=== PATIENT | male | born 1935 | race Caucasian/White ===

== ENCOUNTER 2019-05-22 10:25 | Inpatient (IN) | payer MEDICARE ==
[2019-05-22] MEDS ORDERED: Lidocaine 1% (PF) 30 ML VIAL ONE (11:05)
[2019-05-22] MEDS ORDERED: Diazepam 5 MG TAB ONE (11:07)
[2019-05-22 11:18] LABS: #Eosinphils 0.2 thou/uL (0.0-0.7); #Lymphocytes 2.4 thou/uL (1.20-3.40); #Monocytes 0.7 thou/uL (0.11-0.59); #Neutrophils 4.7 thou/uL (1.40-6.50); %Basophils 0.5 % (0.0-1.0); %Eosinophils 2.9 % (0.0-10.0); %Lymphocytes 29.3 % (21.0-51.0); %Monocytes 8.8 % (0.0-10.0); %Neutrophils 58.5 % (42.0-75.0); Hemoglobin 14.1 g/dL (14.0-18.0); Mean Corpuscular HGB CONC 33.4 g/dL (32.0-36.0); Mean Corpuscular Hemoglobin 33.6 pg (27.0-31.0); Mean Platelet Volume 7.7 fL (7.4-10.4); Platelet Count 221 thou/uL (130-400); RBC Distribution Width 13.3 % (11.5-14.5); Red Blood Cell (RBC) Count 4.18 mill/uL (4.70-6.10); White Blood Cell (WBC) Count 8.1 thou/uL (4.8-10.8)
[2019-05-22 11:32] LABS: Anion Gap 12 mmol/L (10-20); BUN (Urea Nitrogen) 23 mg/dL (8.4-25.7); Calc. Creatinine Clearance 0 mL/min (70-130); Calcium 9.2 mg/dL (7.8-10.44); Carbon Dioxide 23 mmol/L (23-31); Chloride 108 mmol/L (98-107); Estimated GFR-MDRD 52; Glucose 87 mg/dL (83-110); Potassium 4.2 mmol/L (3.5-5.1); Sodium 139 mmol/L (136-145)
[2019-05-22] MEDS ORDERED: Fentanyl 100 MCG/2 ML VIAL ONE (12:11)
[2019-05-22] MEDS ORDERED: Midazolam HCl 2 mg/2 ml Vial ONE (12:12)
[2019-05-22] MEDS ORDERED: Furosemide 40 MG/4 ML VIAL ONE (13:02)
[2019-05-22] MEDS ORDERED: Nitroglycerin 2% Ointment 1 INCH/1 GM Packet ONE (13:02)
[2019-05-22] MEDS ORDERED: Nitroglycerin 4.9 GM Bottle ONE (13:05)
[2019-05-22] MEDS ORDERED: cloNIDine 0.1 MG TAB ONE (13:06)
[2019-05-22] MEDS ORDERED: Iopamidol 370 76% 100 ML VIAL ONE (13:13)
[2019-05-22] MEDS ORDERED: Nitroglycerin 0.4 MG TAB (25 Tab Bottle) SL PRN (15:18)
[2019-05-22] MEDS ORDERED: cloNIDine 0.1 MG TAB PO PRN (15:21)
[2019-05-22] MEDS ORDERED: Amlodipine 5 MG TAB PO SCH (16:30)
--- NOTE | 2019-05-22 17:08 | HP ---
REASON FOR ADMISSION: Unstable angina and severe three-vessel coronary artery disease. HISTORY OF PRESENT ILLNESS: Mr. Mujica is a very pleasant 84-year-old gentleman. The patient has a history of prostate cancer with previous radiation therapy, subsequent recurrence, but is now well controlled with testosterone blocking agent as well as intermittent doses of antiestrogens. The PSAs improved dramatically. The patient recently has been having increasing amounts of chest pain or pressure with low-level exertion at rest. He initially was extremely hypertensive. The blood pressure was over 200 systolic. He did have a slight increased troponin, but it was thought to be demand ischemia, but even after controlling the blood pressure, he continued to have resting angina. He was seen in the office yesterday and was advised to undergo cardiac catheterization, which he agreed to. The patient was found to have severe three-vessel disease with ejection fraction 40% on catheterization today. MEDICATIONS: The patient takes; 1. Zytiga. 2. Lupron intermittently. 3. Lisinopril 5 mg a day. 4. Lasix 20 mg a day, just started. 5. Aspirin 81 mg a day. 6. Paroxetine. ALLERGIES: NONE KNOWN. SOCIAL HISTORY: Very supportive family. Does not use tobacco or use alcohol excessively. REVIEW OF SYSTEMS: CONSTITUTIONAL: Still remains active. VISION: No changes. HEARING: No changes. PULMONARY: No cough or wheezing. GASTROINTESTINAL: No nausea, vomiting, or diarrhea. SKIN: No rashes. NEUROLOGIC: No unilateral weakness or numbness. PSYCHIATRIC: No unusual depression or anxiety. HEMATOLOGIC: No unusual bruising. GENITOURINARY: No burning with urination. PAST MEDICAL HISTORY: As mentioned, prostate cancer controlled. PHYSICAL EXAMINATION: GENERAL: This is a pleasant elderly gentleman, in no distress. Awake and alert. He has undergone cardiac catheterization. VITAL SIGNS: Blood pressure has been variable most recently 150 systolic. LUNGS: Clear. CARDIAC: Normal S1 and S2. 2/6 mid systolic murmur in the left upper sternal border. No diastolic murmur. No S3. ABDOMEN: Soft and nontender. EXTREMITIES: No cyanosis. There is very mild edema. Pedal pulses are palpable. SKIN: Warm and dry. Cardiac catheterization, severe three-vessel disease with mild aortic stenosis. ASSESSMENT: 1. Severe three-vessel disease. 2. Renal insufficiency, stable. 3. Prostate cancer, controlled. 4. Hypertension. PLAN: 1. He has been started on lisinopril. 2. We will add nitrates. 3. Consulted Thoracic Surgery. 4. Start statins. His cholesterol is extremely high. Most recent LDL that I can see in the computer was 205 back in last May. In view of the unstable pattern with actually recent troponin levels being slightly elevated at 0.9 and then 0.555, we will keep him in the hospital till Thoracic consultations obtained. Job ID: [id number]
[2019-05-22] MEDS: Acetaminophen 500 MG TAB PO PRN (18:40)
[2019-05-22] MEDS: Lisinopril 5 MG TAB PO SCH (20:22)
[2019-05-22] MEDS: Atorvastatin Calcium 40 MG TAB PO SCH (20:22)
[2019-05-22] MEDS: Nitroglycerin 2% Ointment 1 INCH/1 GM Packet TOP SCH (20:22)
[2019-05-23] MEDS: Acetaminophen 500 MG TAB PO PRN ×4 (01:42→21:28)
[2019-05-23] MEDS: predniSONE 5 MG TAB PO SCH (08:56)
[2019-05-23] MEDS: Amlodipine 5 MG TAB PO SCH (08:56)
[2019-05-23] MEDS: Lisinopril 5 MG TAB PO SCH ×2 (08:57→21:26)
[2019-05-23] MEDS: Enoxaparin Sodium 30 MG/0.3 ML SYRINGE SC SCH ×2 (08:57→21:28)
[2019-05-23] MEDS: Nitroglycerin 2% Ointment 1 INCH/1 GM Packet TOP SCH ×2 (08:57→21:28)
[2019-05-23] MEDS: Aspirin 81 mg Enteric Coated Tablet PO SCH (08:57)
[2019-05-23] MEDS: Furosemide 20 MG TAB PO SCH (08:57)
[2019-05-23] MEDS ORDERED: [UNRECOGNIZED DRUG - OTHER] FS ONE (13:10)
--- NOTE | 2019-05-23 15:42 | ULT ---
EXAM: Carotid Doppler PROVIDED CLINICAL HISTORY: Carotid bruit COMPARISON: None FINDINGS: Grayscale and color Doppler sonography with spectral analysis was performed of the extracranial carot id system bilaterally. There is no evidence for a hemodynamically significant internal carotid artery stenosis by peak systolic velocity or ratio criteria. Antegrade flow is seen in the vertebral arteries. Calcified atherosclerotic plaque is seen involving each carotid bulb. IMPRESSION: No sonographic evidence for a hemodynamically significant internal carotid artery stenosis.
--- NOTE | 2019-05-23 16:02 | RAD ---
EXAM: Two views chest PROVIDED CLINICAL HISTORY: Chest pain and shortness of breath COMPARISON: 06/05/2012 FINDINGS: Cardiac and mediastinal silhouette appears within normal limits. Lungs appear free of significant opa city. No pleural fluid or pneumothorax apparent. There is a new sclerotic focus seen within the distal right clavicle suspicious for metastatic disease. IMPRESSION: 1. No evidence for an acute cardiopulmonary process. 2. Sclerotic right clavicular focus suspicious for metastatic disease.
--- NOTE | 2019-05-23 16:21 | CON ---
DATE OF CONSULTATION: 05/23/2019 PRIMARY CARE PHYSICIAN: Tim Martinez MD CHIEF COMPLAINT: Chest pressure and squeezing. 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 For few weeks now, he has been noticing some chest pressure and tightness that has gradually been getting worse. It is now associated with significant dyspnea on exertion. He occasionally has some discomfort at rest. He has had some swelling of his feet and ankles and some orthopnea over the last 2 or 3 weeks and screening troponins that were done as an outpatient to evaluate some progression of the symptoms when they were fairly active, were mildly elevated along with an elevated BNP. Cardiac catheterization yesterday showed severe 3-vessel coronary artery disease with mildly decreased LV function. PAST MEDICAL HISTORY: Significant for metastatic prostate cancer that is currently under good control following local radiation therapy initially and then hormonal manipulation. He has hyperlipidemia. MEDICATIONS: His home medications are; 1. Lisinopril 5 mg a day. 2. Baby aspirin a day. 3. Lasix 20 mg a day that was recently started in response to his edema. 4. Intermittent Lupron. 5. Prolia. 6. Abiraterone. 7. Prednisone. His current medications are; 1. Norvasc 2.5 mg a day. 2. Lisinopril 5 mg b.i.d. 3. Lasix 20 mg a day. 4. Nitroglycerin paste 1 inch b.i.d. 5. Baby aspirin a day. 6. Lipitor 80 mg at bedtime. 7. Protonix 40 mg a day. 8. Prednisone 5 mg a day. 9. Lovenox 30 mg subcu q.12 hours. ALLERGIES: HE DENIES ANY MEDICAL ALLERGIES. SOCIAL HISTORY: He does not smoke. REVIEW OF SYSTEMS: Positive for his orthopnea, dyspnea on exertion and pedal edema. Prior to this current progression of symptoms, he had no problems with shortness of breath. He reports some arthritic symptoms in his knees, but otherwise no trouble walking while he does not remember them. His and a family friend remember at least two recent episodes, where he seemed dazed and confused and had trouble speaking, which lasted for few hours and then he returned to baseline. PHYSICAL EXAMINATION: VITAL SIGNS: He is 5 feet 10.5 inches and weighs 269 pounds. Heart rate 62, blood pressure 157/76, and temperature is 98.2. HEENT: He has no xanthelasma. NECK: No JVD. He has a left carotid bruit. CHEST: Clear to auscultation. HEART: He has a regular rate and rhythm with soft systolic murmur heard over the left upper sternal border. ABDOMEN: Protuberant, soft, and nontender. EXTREMITIES: He has palpable radial and posterior tibial pulses bilaterally. He has trace pretibial edema at the ankles. I am not able to readily appreciate his saphenous veins. He has no clubbing or cyanosis. NEUROLOGIC: Grossly nonfocal. LABORATORY DATA: His white count is 8.1, hemoglobin 14.8, hematocrit 42.1, and platelets 221,000. Electrolytes were normal. Glucose 87, BUN 23, creatinine 1.31 with an estimated GFR of 52. In going back through his historical record, his BUN's and creatinines have tended to trend on the high side and GFR is on the low side, but they have actually been improving of late. In November of 2016, his BUN was 17 and creatinine 2.23 with an estimated GFR of 29. About seven months later in May of 2018; BUN is 26, creatinine 1.74, and GFR of 38. In late March of this year, his BUN was 13, creatinine 1.29 with an estimated GFR 53, and on the of this month, his BUN was 21, creatinine 1.44 with an estimated GFR 47. His LFTs are normal including his alkaline phosphatase. Calcium was 9.7 and albumin 4.2. His BNP was 214.4, and troponins were 0.910 and 0.554. He has not had a chest x-ray in this hospitalization. His cardiac catheterization shows a right-dominant system with occlusion of the right coronary at the crux with [id number] filling of the PDA and small posterolateral branch. His calcification visible in the left main and proximal LAD and circumflex. He has some minimal stenosis in the proximal LAD, but then 80% or 90% lesion a little bit beyond the first septal flexographic printing machinist at the second septal flexographic printing machinist. He has about an 80% lesion in the circumflex with a large vessel going out to the apex. LVEF is around 40% with basilar akinesis but hypokinesis of most of the inferior wall. LV pressures were 196/9 with an EDP of 20 and an aortic pressure on pullback of 186/89 with a mean pressure of 128. There is some mild calcification visible in the cusps of the aortic valve at the very base of the aortic root. IMPRESSION AND RECOMMENDATIONS: Three-vessel coronary artery disease with mildly decreased LV function with pattern of worsening angina in a patient with documented hypertension and some renal insufficiency. He also has a suspicious neurologic symptom and a corresponding left carotid bruit. I am going to tentatively plan on his coronary artery bypass grafting on Saturday, but in the meantime, check a carotid ultrasound. Job ID: [id number]
[2019-05-23] MEDS: Docusate 100 MG CAP PO SCH (21:26)
[2019-05-23] MEDS: Atorvastatin Calcium 40 MG TAB PO SCH (21:28)
[2019-05-24 04:26] LABS: Anion Gap 10 mmol/L (10-20); BUN (Urea Nitrogen) 17 mg/dL (8.4-25.7); Calc. Creatinine Clearance 78 mL/min (70-130); Calcium 9.4 mg/dL (7.8-10.44); Carbon Dioxide 28 mmol/L (23-31); Chloride 106 mmol/L (98-107); Estimated GFR-MDRD 55; Glucose 102 mg/dL (83-110); Potassium 3.7 mmol/L (3.5-5.1); Sodium 140 mmol/L (136-145)
[2019-05-24] MEDS: Amlodipine 5 MG TAB PO SCH (09:37)
[2019-05-24] MEDS: predniSONE 5 MG TAB PO SCH (09:37)
[2019-05-24] MEDS: Docusate 100 MG CAP PO SCH ×2 (09:37→21:48)
[2019-05-24] MEDS: Lisinopril 5 MG TAB PO SCH ×2 (09:38→21:49)
[2019-05-24] MEDS: Aspirin 81 mg Enteric Coated Tablet PO SCH (09:38)
[2019-05-24] MEDS: Enoxaparin Sodium 30 MG/0.3 ML SYRINGE SC SCH ×2 (09:38→21:49)
[2019-05-24] MEDS: Furosemide 20 MG TAB PO SCH (09:38)
[2019-05-24] MEDS: Nitroglycerin 2% Ointment 1 INCH/1 GM Packet TOP SCH ×2 (09:39→21:49)
[2019-05-24] MEDS: Atorvastatin Calcium 40 MG TAB PO SCH (21:48)
[2019-05-25] MEDS: Lisinopril 5 MG TAB PO SCH (05:43)
[2019-05-25] MEDS ORDERED: Midazolam HCl 5 mg/5 ml Vial ONE (06:30)
[2019-05-25] MEDS ORDERED: Midazolam HCl 2 mg/2 ml Vial ONE (06:30)
[2019-05-25] MEDS ORDERED: Vecuronium 10 MG VIAL ONE ×2 (06:30→11:06)
[2019-05-25] MEDS ORDERED: Fentanyl 100 MCG/2 ML VIAL ONE (06:30)
[2019-05-25] MEDS ORDERED: Dexmedetomidine 200 MCG/2 ML VIAL ONE (06:30)
[2019-05-25] MEDS ORDERED: Albumin 5% 500 ML ONE (06:36)
[2019-05-25] MEDS ORDERED: Heparin 10,000 UNITS/1 ML VIAL 30,000 UNITS in Sodium Chloride 0.9% 1,000 ML FS SCH (06:45)
[2019-05-25] MEDS ORDERED: Thrombin 5000 UNITS/5 ML VIAL ONE (11:06)
[2019-05-25] MEDS ORDERED: Heparin 5,000 UNITS/ML VIAL ONE (11:06)
[2019-05-25] MEDS ORDERED: Hydrocortisone Sod Succ/PF 100 mg/2 ml Vial ONE (11:06)
[2019-05-25] MEDS ORDERED: Sodium Bicarb 50 MEQ/50 ML VIAL ONE (11:06)
[2019-05-25] MEDS ORDERED: Glycopyrrolate 0.2 MG/ML 5 ML SYRINGE ONE (11:06)
[2019-05-25] MEDS ORDERED: Magnesium 5 GM/10 ML VIAL ONE (11:06)
[2019-05-25] MEDS ORDERED: Cardioplegic Soln 1,000 ML BAG ONE (11:06)
[2019-05-25] MEDS ORDERED: Dexamethasone 20 MG/5 ML VIAL ONE (11:06)
[2019-05-25] MEDS ORDERED: Lidocaine 2% PF 100 mg/5 ml Syringe ONE (11:06)
[2019-05-25] MEDS ORDERED: Ketorolac Tromethamine 30 MG/ML VIAL ONE (11:06)
[2019-05-25] MEDS ORDERED: Calcium Chloride 1 GM/10 ML Abboject SYRINGE ONE (11:06)
[2019-05-25] MEDS ORDERED: Potassium Chloride 60 MEQ/30 ML VIAL ONE (11:06)
[2019-05-25] MEDS ORDERED: Aminocaproic Acid 5 GM/20 ML VIAL ONE (11:06)
[2019-05-25] MEDS ORDERED: Nitroglycerin 50 MG/250 ML BOT ONE (11:06)
[2019-05-25] MEDS ORDERED: PHENYLEPHRINE-NS 100 MCG/ML 10 ML SYRINGE ONE (11:06)
[2019-05-25] MEDS ORDERED: Protamine Sulfate 250 MG/25 ML VIAL ONE (11:06)
[2019-05-25] MEDS ORDERED: Papaverine 60 MG/2 ML VIAL ONE (11:06)
[2019-05-25] MEDS ORDERED: ePHEDrine 50 MG/ML VIAL ONE (11:06)
[2019-05-25] MEDS ORDERED: Heparin 30,000 units/30 ml VIAL ONE (11:06)
[2019-05-25] MEDS ORDERED: Mannitol 12.5 GM/50 ML ONE (11:06)
[2019-05-25] MEDS ORDERED: Acetaminophen 325 MG TAB PO PRN (11:38)
[2019-05-25] MEDS ORDERED: Nitroglycerin 50 MG/250 ML BOT 250 ML IVPB PRN (11:38)
[2019-05-25] MEDS ORDERED: Norepinephrine 8 MG/0.9% NS 250 ML IVPB PRN (11:38)
[2019-05-25] MEDS ORDERED: niCARdipine 25 MG in Sodium Chloride 0.9% 250 ML 240 ML IVPB PRN (11:38)
[2019-05-25] MEDS ORDERED: Mag-Al 1200 mg/1200 mg/30 ML UDCUP PO PRN (11:38)
[2019-05-25] MEDS ORDERED: Post-Op Insulin Drip Protocol IVPB ONE (11:38)
[2019-05-25] MEDS ORDERED: Hetastarch 6% 500 ML 500 ML IVPB PRN (11:38)
[2019-05-25] MEDS ORDERED: Promethazine HCl 25 MG/ML VIAL IM PRN (11:38)
[2019-05-25] MEDS ORDERED: Bisacodyl 10 MG SUPP PR PRN (11:38)
[2019-05-25] MEDS ORDERED: Guaifenesin DM 100-10/5 ML UDCUP PO PRN (11:38)
[2019-05-25] MEDS ORDERED: Morphine 4 MG/ML VIAL SLOW IVP PRN (11:38)
[2019-05-25] MEDS ORDERED: Bisacodyl 5 MG TAB PO PRN (11:38)
[2019-05-25] MEDS ORDERED: hydrALAZINE 20 MG/ML VIAL SLOW IVP PRN (11:38)
[2019-05-25] MEDS ORDERED: Fentanyl 100 MCG/2 ML VIAL SLOW IVP PRN (11:38)
[2019-05-25] MEDS: predniSONE 5 MG TAB PO SCH (11:50)
[2019-05-25 12:18] LABS: Actual Bicarbonate (HCO3a) 22.8 mEq/L (22-28); Base Excess (BEa) -3.5 mEq/L (-2.0 to +3.0); CO2 Tension 45.9 mmHg (35.0-45.0); Calcium, Ionized 1.15 mmol/L (1.12-1.30); Carboxyhemoglobin (COHb) 0.8 gm% (0.0-3.0); Hemoglobin (Hb) 12.4 g/dL (14.0-18.0); O2 Tension (PaO2) 95.3 mmHg (> 60.0); Potassium - ABG Lab 3.56 mmol/L (3.70-5.30); pH, Arterial 7.31 (7.35-7.45)
[2019-05-25 12:19] LABS: ALV-art Gradient 203.825 (0-20); Puncture Site ALINE
[2019-05-25] MEDS ORDERED: Insulin Regular 300 UNITS/3 ML VIAL SC PRN (12:19)
[2019-05-25] MEDS ORDERED: Dextrose 5% in Water 1,000 ML IV PRN (12:19)
[2019-05-25] MEDS ORDERED: HUMULIN R 100 UNITS in Sodium Chloride 0.9% 100 ML IVPB SCH (12:19)
[2019-05-25] MEDS ORDERED: Dextrose 50% Abboject 50 ML SYRINGE SLOW IVP PRN (12:19)
[2019-05-25 12:26] LABS: #Eosinphils 0.1 thou/uL (0.0-0.7); #Lymphocytes 1.5 thou/uL (1.20-3.40); #Monocytes 0.8 thou/uL (0.11-0.59); #Neutrophils 13.6 thou/uL (1.40-6.50); %Eosinophils 0.7 % (0.0-10.0); %Lymphocytes 9.5 % (21.0-51.0); %Monocytes 4.9 % (0.0-10.0); %Neutrophils 84.9 % (42.0-75.0); Hemoglobin 12.1 g/dL (14.0-18.0); Mean Corpuscular HGB CONC 33.3 g/dL (32.0-36.0); Mean Corpuscular Hemoglobin 33.2 pg (27.0-31.0); Mean Corpuscular Volume 99.5 fL (78.0-98.0); Mean Platelet Volume 7.7 fL (7.4-10.4); Platelet Count 145 thou/uL (130-400); Red Blood Cell (RBC) Count 3.65 mill/uL (4.70-6.10)
[2019-05-25 12:30] LABS: INR-International Normal Ratio 1.4; PTT 30.2 SEC (22.9-36.1); Prothrombin Time 16.9 SEC (12.0-14.7)
[2019-05-25] MEDS ORDERED: Aspirin Chewable 81 MG TAB PO SCH (12:30)
--- NOTE | 2019-05-25 12:40 | RAD ---
XR Chest 1 View Portable History: Chest pain Comparison: Radiograph 05/23/2019 Findings: New midline sternotomy wires. Abnormal sclerosis distal right clavicle is similar. Bilatera l subscapularis bursa bodies. Mediastinum drains are present. Central venous catheter tip sits at the right atrium. Layering effusi ons. Lungs are hypoinflated. Impression: Expected postoperative findings without complication.
[2019-05-25 12:44] LABS: Anion Gap 12 mmol/L (10-20); BUN (Urea Nitrogen) 16 mg/dL (8.4-25.7); Calc. Creatinine Clearance 84 mL/min (70-130); Carbon Dioxide 22 mmol/L (23-31); Chloride 111 mmol/L (98-107); Estimated GFR-MDRD 61; Glucose 184 mg/dL (83-110); Potassium 3.6 mmol/L (3.5-5.1); Sodium 141 mmol/L (136-145)
[2019-05-25] MEDS: Fentanyl 100 MCG/2 ML VIAL SLOW IVP PRN ×3 (12:44→20:17)
[2019-05-25] MEDS: Sodium Chloride 0.9% 1,000 ML IV SCH (12:45)
[2019-05-25] MEDS: Ondansetron PF 4 MG/2 ML Vial IVP PRN (13:17)
[2019-05-25] MEDS: Potassium Chloride 20 MEQ/100 ML PREMIX BAG IVPB PRN ×2 (13:28→18:51)
[2019-05-25] MEDS: HYDROcodone/Acetaminophen 5/325 mg Tablet PO PRN ×3 (13:31→22:51)
--- NOTE | 2019-05-25 13:44 | OP ---
DATE OF PROCEDURE: 05/25/2019 PROCEDURES PERFORMED: Coronary artery bypass grafting x3 with left internal mammary artery to the distal left anterior descending and reverse greater saphenous vein grafts from the aorta to the obtuse marginal and the PDA. PREOPERATIVE DIAGNOSES: Coronary artery disease with unstable angina. POSTOPERATIVE DIAGNOSES: Coronary artery disease with unstable angina. 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 INDICATIONS: The patient is an 84-year-old man, who has done well in spite of his stage 4 prostate cancer. He has recently developed chest pressure and squeezing consistent with angina that has become increasingly severe and frequent and precipitated by less and less exertion including occasionally at rest. Cardiac catheterization demonstrated severe three-vessel coronary artery disease with mildly decreased LV function. He is now taken to the operating room for coronary revascularization. FINDINGS: Pump time 66 minutes. Cross-clamp 48 minutes (proximal vein graft anastomosis done under cross-clamp). A 1.5 to 2 cm foci in the manubrium and in the mid body of the sternum that were starkly white, extremely hard, and apparently devoid of marrow. The SHAILA distally was densely adherent to the chest wall, but was of reasonably good size and quality. The saphenous vein was of good quality. The LAD was 1.5 to 2 mm thick wall sclerotic vessel. The obtuse marginal was diffusely diseased and about 2 mm vessel. It was grafted distally. The PDA was about a 1.5 to 2 mm good quality vessel. There was some firm plaque posteriorly in the root of the aorta. NARRATIVE REPORT: After informed consent was obtained, the patient was taken to the operating room, placed in supine position on the operating table. After the induction of general anesthesia, the greater saphenous vein was ultrasonographically mapped and marked in the left lower extremity. His right chest was prepped and draped in sterile fashion and he was placed in Trendelenburg. Using a triple-lumen central line kit, a right subclavian central line was placed by the Seldinger technique. All 3 ports easily aspirated and flushed. The line was secured. The patient's torso, groins, and lower extremities were prepped and draped in sterile fashion. Greater saphenous vein was exposed through a small incision just above the left knee and then endoscopically harvested from groin to about a handbreadth below the knee using the incision at the knee was a port site and stab incisions proximally and distally for ligation and division. The vein was prepared for use as a graft and the port site closed in layers of subcutaneous and subcuticular Vicryl. A median sternotomy was performed. The left internal mammary artery was harvested as a pedicle with minimal attached fascia and muscle from the level of the xiphoid to the level of the subclavian vein. Side branches were controlled with small hemoclips. The mammary was ligated and divided. There was good flow through the mammary, which was instilled with the papaverine solution and the patient was heparinized. The mammary bed was inspected for hemostasis. The medial reflections of the left pleura were mobilized from the apex down to about the hilum with two areas of violation being repaired with 6-0 Prolene suture. The SHAILA retractor was replaced with a Zamorano retractor and the pericardium was opened and marsupialized. The heart was shifted a little bit toward the right and there was a fairly oblique almost transverse orientation to the ascending aorta and the central portion of the chest. The pericardial reflection was taken down. A double concentric pursestring of 2-0 Ethibond was placed in the ascending aorta and a single pursestring placed in the right atrial appendage. Aortic and venous cannulae were inserted and secured by their pursestrings. The plane between the aorta and the pulmonary artery was developed and the aorta again palpated. There was some plaque palpable posteriorly in the root, prompting performance of all the anastomoses under cross-clamp. Cardiopulmonary bypass was instituted and the patient was systemically cooled. The heart was examined. The vessels to be bypassed were identified. An aortic cross-clamp was applied and cardioplegia was administered through an aortic root needle. All cardioplegia was infusing. A longitudinal slit was made in the pericardium anterior to the left phrenic nerve through which the mammary could be passed. When arrest have been achieved, attention was turned to the circumflex system. The obtuse marginal was exposed and opened distally, where it became somewhat softer. Saphenous vein was anastomosed there end-to-side with running Prolene suture and the anastomosis tested by flushing cold cardioplegia down the graft. The PDA was then opened and grafted in a similar fashion. The LAD was then exposed and opened. The SHAILA was anastomosed to it with running 7-0 Prolene and tacked to the epicardium. Cardioplegia was administered through the aortic root needle sufficient to slightly distend the aorta and an aortotomy was made in the ascending aorta with the scalpel and punch. The PDA graft was distended, oriented, trimmed to length and spatulated and anastomosed to that aortotomy with running Prolene suture. A second aortotomy was made distal to that. No OM graft was anastomosed there. With the patient in Trendelenburg and the root needle and suction, the aortic cross-clamp was removed. The vein grafts were de-aired and the bulldogs removed from all three grafts. The anastomoses were inspected for hemostasis. The root needle was removed and its insertion site repaired with a pursestring Prolene suture. Right atrial and right ventricular temporary epicardial pacing wires were placed as well as a posterior pericardial drain. The patient was from cardiopulmonary bypass and the venous cannula removed. Further inspection; however, showed at this point, there was some bleeding coming from the heel of the OM graft proximal anastomosis. This was initially controlled along the anastomotic line with Prolene suture, but a tear in the aorta per se. Near there, consistent with suture cutting through began bleeding, this was controlled with vein pledgeted mattress sutures. When hemostasis was adequate and the patient tolerated test dose of protamine, the aortic cannula was removed and its pursestring secured and the remaining protamine was administered. An anterior mediastinal drain was placed. The mediastinal fat was tacked back together to cover up the aorta in the proximal portions of the vein grafts and the inferior medial aspect of the pericardium loosely tacked back to the diaphragmatic surface. The cut surfaces of the sternum were treated with vancomycin paste and platelet rich GPS. The sternum was reapproximated with #7 stainless steel wires. The soft tissues were irrigated and treated with platelet poor GPS. The fascia was closed over the wires with running #1 Vicryl. The subcutaneous tissue was reapproximated with 2-0 Vicryl and the skin was closed with a running 3-0 Vicryl subcuticular suture. The wounds were dressed and the patient was taken to the intensive care unit in stable condition. Job ID: [id number]
[2019-05-25 18:22] LABS: Hemoglobin 10.2 g/dL (14.0-18.0)
[2019-05-26] MEDS: Fentanyl 100 MCG/2 ML VIAL SLOW IVP PRN ×2 (00:10→05:54)
[2019-05-26] MEDS: HYDROcodone/Acetaminophen 5/325 mg Tablet PO PRN ×3 (03:13→21:00)
[2019-05-26 04:49] LABS: #Lymphocytes 1.3 thou/uL (1.20-3.40); #Neutrophils 8.7 thou/uL (1.40-6.50); %Basophils 0.1 % (0.0-1.0); %Eosinophils 0.1 % (0.0-10.0); %Monocytes 8.6 % (0.0-10.0); %Neutrophils 79.2 % (42.0-75.0); Hemoglobin 9.7 g/dL (14.0-18.0); Mean Corpuscular HGB CONC 33.4 g/dL (32.0-36.0); Mean Corpuscular Hemoglobin 34.1 pg (27.0-31.0); Platelet Count 163 thou/uL (130-400); RBC Distribution Width 13.2 % (11.5-14.5); Red Blood Cell (RBC) Count 2.86 mill/uL (4.70-6.10)
[2019-05-26] MEDS: Sodium Chloride 0.9% 1,000 ML IV SCH ×2 (05:05→15:05)
[2019-05-26 05:07] LABS: Anion Gap 10 mmol/L (10-20); BUN (Urea Nitrogen) 18 mg/dL (8.4-25.7); Calc. Creatinine Clearance 90 mL/min (70-130); Calcium 7.8 mg/dL (7.8-10.44); Carbon Dioxide 21 mmol/L (23-31); Chloride 113 mmol/L (98-107); Estimated GFR-MDRD 66; Glucose 132 mg/dL (83-110); Sodium 140 mmol/L (136-145)
--- NOTE | 2019-05-26 07:49 | RAD ---
EXAM: Single view of the chest HISTORY: Status post open heart surgery COMPARISON: 05/25/2019 FINDINGS: Single view of the chest shows an enlarged but stable cardiomediastinal silhouette. The pa tient is status post sternotomy. The central venous catheter is unchanged in position. Low lung volumes are seen. There is no evidence of consolidation, mass, or pleural effusion. The bones are un remarkable. IMPRESSION: Stable exam
[2019-05-26] MEDS: Aspirin Chewable 81 MG TAB PO SCH (08:28)
--- NOTE | 2019-05-26 09:50 | PRG ---
DATE OF SERVICE: 05/26/2019 SUBJECTIVE: Mr. Mujica is doing well. He had some drops in blood pressure earlier when he sat up in the chair, but he is doing well now. OBJECTIVE: VITAL SIGNS: Blood pressure now 100/47, pulse 75 and regular and it is sinus. LUNGS: Clear. CARDIAC: Normal S1. Normal S2. ABDOMEN: Soft, nontender. ASSESSMENT: 1. Three-vessel disease, status post coronary bypass grafting for unstable angina. 2. History of hypertension, now hypotensive. 3. Prostate cancer. PLAN: 1. He is on aspirin. 2. We will resume statin therapy. 3. Ultimately, beta-blockers, but not for now in view of the blood pressure being low. We will continue to follow with you. Job ID: [id number]
[2019-05-26] MEDS ORDERED: Insulin Glargine 6 UNITS in Pre-Filled Syringe 1 EACH SC SCH (10:15)
[2019-05-26] MEDS ORDERED: Norepinephrine 8 MG in Sodium Chloride 0.9% 250 ML 242 ML IVPB PRN (11:23)
[2019-05-26 11:44] LABS: Actual Bicarbonate (HCO3a) 24.7 mEq/L (22-28); Analyzer IN Cardio OR; Base Excess (BEa) -0.2 mEq/L (-2.0 to +3.0); CO2 Tension 41.1 mmHg (35.0-45.0); Carboxyhemoglobin (COHb) 0.3 gm% (0.0-3.0); Hemoglobin (Hb) 12.5 g/dL (14.0-18.0); O2 Tension (PaO2) 390.2 mmHg (> 60.0)
[2019-05-26 11:44] LABS: Actual Bicarbonate (HCO3a) 23.8 mEq/L (22-28); Analyzer IN Cardio OR; Base Excess (BEa) 0.3 mEq/L (-2.0 to +3.0); CO2 Tension 34.8 mmHg (35.0-45.0); Calcium, Ionized 1.09 mmol/L (1.12-1.30); Carboxyhemoglobin (COHb) 0.5 gm% (0.0-3.0); Hemoglobin (Hb) 12.2 g/dL (14.0-18.0); O2 Tension (PaO2) 256.3 mmHg (> 60.0); Potassium - ABG Lab 3.39 mmol/L (3.70-5.30); pH, Arterial 7.45 (7.35-7.45)
[2019-05-26 11:45] LABS: Actual Bicarbonate (HCO3a) 23.1 mEq/L (22-28); Analyzer IN Cardio OR; Base Excess (BEa) -2.8 mEq/L (-2.0 to +3.0); CO2 Tension 45.3 mmHg (35.0-45.0); Calcium, Ionized 0.99 mmol/L (1.12-1.30); Carboxyhemoglobin (COHb) 0.3 gm% (0.0-3.0); Hemoglobin (Hb) 9.9 g/dL (14.0-18.0); Potassium - ABG Lab 3.95 mmol/L (3.70-5.30); pH, Arterial 7.33 (7.35-7.45)
[2019-05-26 11:45] LABS: Actual Bicarbonate (HCO3v) 27 mEq/L (22-28); Analyzer IN Cardio OR; Base Excess 0.5 mEq/L (-2.0 to +3.0); Calcium, Ionized 1.02 mmol/L (1.16-1.32); Chloride (ABG LAB) 106 mmol/L (98-106); Hemoglobin (Hb) 9.9 g/dL (12.6-17.4); Potassium - ABG Lab 3.85 mmol/L (3.70-5.30); Sodium 138.8 mmol/L (133-146); pH (venous) 7.34 (7.32-7.43)
[2019-05-26 11:46] LABS: Actual Bicarbonate (HCO3a) 25.4 mEq/L (22-28); Analyzer IN Cardio OR; Base Excess (BEa) -0.6 mEq/L (-2.0 to +3.0); CO2 Tension 48.3 mmHg (35.0-45.0); Calcium, Ionized 1.62 mmol/L (1.12-1.30); Carboxyhemoglobin (COHb) 0.4 gm% (0.0-3.0); Hemoglobin (Hb) 9.2 g/dL (14.0-18.0); O2 Tension (PaO2) 402.2 mmHg (> 60.0); Potassium - ABG Lab 3.98 mmol/L (3.70-5.30); pH, Arterial 7.34 (7.35-7.45)
[2019-05-26 11:46] LABS: Actual Bicarbonate (HCO3a) 25.3 mEq/L (22-28); Analyzer IN Cardio OR; Base Excess (BEa) -1.1 mEq/L (-2.0 to +3.0); CO2 Tension 49.3 mmHg (35.0-45.0); Calcium, Ionized 1.13 mmol/L (1.12-1.30); Carboxyhemoglobin (COHb) 0.2 gm% (0.0-3.0); Hemoglobin (Hb) 12.2 g/dL (14.0-18.0); O2 Tension (PaO2) 449.1 mmHg (> 60.0); Potassium - ABG Lab 3.66 mmol/L (3.70-5.30); pH, Arterial 7.33 (7.35-7.45)
[2019-05-26 11:49] LABS: Puncture Site ALINE
[2019-05-26 11:50] LABS: Puncture Site ALINE
[2019-05-26 11:51] LABS: Puncture Site ALINE
[2019-05-26 11:51] LABS: O2 Tension (PaO2) 599.2 mmHg (> 60.0); Puncture Site ALINE
[2019-05-26 11:52] LABS: Puncture Site ALINE
[2019-05-26] MEDS: Ondansetron PF 4 MG/2 ML Vial IVP PRN (13:38)
--- NOTE | 2019-05-26 15:25 | CON ---
DATE OF CONSULTATION: 05/26/2019 HISTORY OF PRESENT ILLNESS: Mr. Mujica is an 84-year-old male, who was admitted on 05/22. He underwent coronary artery bypass grafting yesterday. He had a ALEJANDRO to his distal LAD, reverse saphenous vein to his obtuse marginal and his posterior descending artery. He has done well postoperatively, although he is sleepy. He was easily awakened to voice. PAST MEDICAL HISTORY: Remarkable for; 1. Prostate cancer treated with radiation and hormonal therapy. 2. History of hypertension. SOCIAL HISTORY: Nonsmoker, nondrinker, and nondrug user. FAMILY HISTORY: Unknown. ALLERGIES: NO REPORTED ALLERGIES. MEDICATIONS: Prior to admission, he was on; 1. Zytiga. 2. Lupron. 3. Lisinopril. 4. Lasix. 5. Aspirin. 6. Paxil. REVIEW OF SYSTEMS: A 10-point review of systems negative. He reports moderate leg discomfort. Minimal chest discomfort. A 10-point review of systems otherwise negative. PHYSICAL EXAMINATION: GENERAL: Mr. Mujica is an 84-year-old male. VITAL SIGNS: Blood pressure is 110/68, heart rate is 72, respiratory rate is 20 , and oximetry is 94. HEENT: Pupils are equal. Sclerae are anicteric. NECK: Supple. LUNGS: Clear. HEART: Regular rhythm. S1 and S2 normal. ABDOMEN: Soft and nontender. EXTREMITIES: Without clubbing, cyanosis, or edema. His left lower extremity is wrapped with an Bello wrap. Still has chest tube in place. IMPRESSION AND PLAN: 1. Status post coronary artery bypass grafting, clinically doing well. 2. Obesity ? sleep apnea. 3. Prostate cancer, responding to therapy according to the admission notes. We will be happy to follow the other physicians caring for him while he is in the critical care unit. Appears to be stable at this time. I met with his and answered all the questions. This is a 50 minute consult, with greater than 50% of time spent on unit coordinating care. Job ID: [id number] MTDD
[2019-05-26] MEDS ORDERED: Furosemide 40 MG/4 ML VIAL ONE (17:02)
[2019-05-26] MEDS ORDERED: Furosemide 40 MG/4 ML VIAL SLOW IVP SCH (17:45)
[2019-05-26] MEDS: Potassium Chloride 20 MEQ/100 ML PREMIX BAG IVPB PRN (19:22)
[2019-05-27] MEDS: HYDROcodone/Acetaminophen 5/325 mg Tablet PO PRN (01:21)
[2019-05-27 04:32] LABS: #Eosinphils 0.1 thou/uL (0.0-0.7); #Lymphocytes 1.5 thou/uL (1.20-3.40); #Neutrophils 9.8 thou/uL (1.40-6.50); %Basophils 0.1 % (0.0-1.0); %Eosinophils 0.5 % (0.0-10.0); %Lymphocytes 11.8 % (21.0-51.0); %Monocytes 7.9 % (0.0-10.0); %Neutrophils 79.6 % (42.0-75.0); Hemoglobin 8.6 g/dL (14.0-18.0); Mean Corpuscular HGB CONC 32.9 g/dL (32.0-36.0); Mean Corpuscular Hemoglobin 33.8 pg (27.0-31.0); Mean Platelet Volume 7.6 fL (7.4-10.4); Platelet Count 141 thou/uL (130-400); RBC Distribution Width 13.3 % (11.5-14.5); Red Blood Cell (RBC) Count 2.53 mill/uL (4.70-6.10); White Blood Cell (WBC) Count 12.3 thou/uL (4.8-10.8)
[2019-05-27 05:16] LABS: Anion Gap 10 mmol/L (10-20); BUN (Urea Nitrogen) 25 mg/dL (8.4-25.7); Calc. Creatinine Clearance 42 mL/min (70-130); Calcium 7.7 mg/dL (7.8-10.44); Carbon Dioxide 23 mmol/L (23-31); Chloride 111 mmol/L (98-107); Estimated GFR-MDRD 27; Glucose 135 mg/dL (83-110); Potassium 3.8 mmol/L (3.5-5.1); Sodium 140 mmol/L (136-145)
[2019-05-27] MEDS: Sodium Chloride 0.9% 1,000 ML IV SCH ×2 (05:36→18:16)
[2019-05-27] MEDS: Potassium Chloride 20 MEQ/100 ML PREMIX BAG IVPB PRN (05:36)
--- NOTE | 2019-05-27 08:16 | RAD ---
PORTABLE CHEST: HISTORY: Respiratory distress. COMPARISON: Prior day's study. FINDINGS: Heart size is enlarged. There are postop sternotomy changes. A right subclavian line is present. B lastic bony lesions are noted. Overall, no significant interval change. IMPRESSION: Stable chest. POS: [facility]
[2019-05-27] MEDS ORDERED: DOBUTamine 500 mg/250 ml 250 ML IVPB SCH (08:30)
[2019-05-27] MEDS: Aspirin Chewable 81 MG TAB PO SCH (08:51)
--- NOTE | 2019-05-27 09:52 | PRG ---
DATE OF SERVICE: 05/27/2019 SUBJECTIVE: Mr. Mujica remains in intensive care unit. He is not having chest pain or pressure. OBJECTIVE: VITAL SIGNS: His blood pressure is relatively low 85/60 and pulse 77 and it is regular. LUNGS: Clear. CARDIAC: Normal S1 and normal S2. ABDOMEN: Soft and nontender. EXTREMITIES: There is moderate edema. PERTINENT LABORATORIES: Creatinine has increased to 2.36, yesterday it was 1.07. ASSESSMENT: 1. Status post bypass surgery. 2. Acute renal failure. 3. Relatively hypotensive. PLAN: The patient has been started on low-dose dobutamine. Blood pressure will need to be monitored. If blood pressure goes down, may need to add some dopamine. Agree with keeping in the ICU another day. Job ID: [id number]
[2019-05-27] MEDS ORDERED: Amiodarone 150 MG, Admixture Fee 1 EACH in Dextrose 5% in Water 100 ML IVPB SCH (10:00)
[2019-05-27] MEDS: Amiodarone 450 MG, Admixture Fee 1 EACH in Dextrose 5% in Water 250 ML IVPB SCH ×2 (10:09→18:15)
--- NOTE | 2019-05-27 15:36 | PRG ---
DATE OF SERVICE: 05/27/2019 SUBJECTIVE: Mr. Mujica remains in the ICU. His urine output fell off little bit earlier today. He was placed on dobutamine 2.5 mcg/kg/minute, and then went into atrial fib. OBJECTIVE: VITAL SIGNS: His heart rate was in the 130s about 1 o'clock, he is back in the 70s now, blood pressure 107/46, respiratory rate 21. Dropped his blood pressure slightly, so he was given a 500 mL fluid bolus. GENERAL: He still has a slow response to questions, but he is more alert than he was yesterday and sat up in his chair this morning. LUNGS: Clear. HEART: Irregular. ABDOMEN: Soft and nontender. EXTREMITIES: Without edema. He still has his left leg bandaged. LABORATORY DATA: White count 12.3, hemoglobin 8.6, platelets 141,000. Sodium 140, potassium 3.8, chloride 111, bicarb 23, BUN 25, creatinine 3.36. Creatinine was 1.07 yesterday. IMPRESSION: 1. Status post coronary artery bypass grafting. 2. Acute on chronic kidney disease, probably we will see an improvement in his renal function over the next few days, although he may deteriorate a little bit before he improves. 3. Obesity. 4. Atrial fibrillation in the past. Hopefully, will convert today, and we will continue to follow. Job ID: [id number]
[2019-05-28 04:45] LABS: #Eosinphils 0.2 thou/uL (0.0-0.7); #Lymphocytes 1.3 thou/uL (1.20-3.40); #Monocytes 0.8 thou/uL (0.11-0.59); #Neutrophils 7.7 thou/uL (1.40-6.50); %Basophils 0.5 % (0.0-1.0); %Eosinophils 1.5 % (0.0-10.0); %Lymphocytes 13.3 % (21.0-51.0); %Monocytes 8.1 % (0.0-10.0); %Neutrophils 76.6 % (42.0-75.0); Hemoglobin 8.2 g/dL (14.0-18.0); Mean Corpuscular HGB CONC 33.3 g/dL (32.0-36.0); Mean Corpuscular Hemoglobin 34.1 pg (27.0-31.0); Mean Platelet Volume 8.6 fL (7.4-10.4); Platelet Count 157 thou/uL (130-400); RBC Distribution Width 13.4 % (11.5-14.5); White Blood Cell (WBC) Count 10.1 thou/uL (4.8-10.8)
[2019-05-28 05:01] LABS: Anion Gap 11 mmol/L (10-20); BUN (Urea Nitrogen) 27 mg/dL (8.4-25.7); Calc. Creatinine Clearance 54 mL/min (70-130); Calcium 6.9 mg/dL (7.8-10.44); Carbon Dioxide 19 mmol/L (23-31); Chloride 110 mmol/L (98-107); Estimated GFR-MDRD 34; Glucose 115 mg/dL (83-110); Potassium 3.7 mmol/L (3.5-5.1); Sodium 136 mmol/L (136-145)
[2019-05-28] MEDS: Potassium Chloride 20 MEQ/100 ML PREMIX BAG IVPB PRN (06:13)
--- NOTE | 2019-05-28 07:41 | RAD ---
EXAM: Single view of the chest HISTORY: Status post open heart surgery COMPARISON: 05/27/2019 FINDINGS: Single view of the chest shows an enlarged but stable cardiomediastinal silhouette. The pa tient is status post sternotomy. A veil like opacity in the right thorax may represent a layering pleural effusion. The central venous catheter is unchanged in position. A stable 2.7 cm well-circumsc ribed mass projects over the midportion of the left thorax. Sclerotic well-circumscribed lesions are seen in the distal aspect of both clavicles. IMPRESSION: Stable exam
[2019-05-28] MEDS: Aspirin Chewable 81 MG TAB PO SCH (08:14)
[2019-05-28] MEDS: Sodium Chloride 0.9% 1,000 ML IV SCH ×2 (08:15→19:23)
--- NOTE | 2019-05-28 09:45 | PRG ---
DATE OF SERVICE: 05/28/2019 SUBJECTIVE: Mr. Mujica is doing much better today. He is sitting up in the chair. OBJECTIVE: VITAL SIGNS: His blood pressure is improved to 125/67; pulse 75, it is sinus on the monitor. LUNGS: Clear. CARDIAC: Normal S1. Normal S2. ABDOMEN: Soft and nontender. EXTREMITIES: Mild edema. PERTINENT LABORATORY DATA: His hemoglobin is 8.2. Creatinine is improved down to 1.9. ASSESSMENT: 1. Status post bypass surgery. 2. Paroxysmal atrial fibrillation, now in sinus rhythm. 3. Renal failure, improving. The GFR is improved to 34. Good urine output today. PLAN: Okay with me to be released back to telemetry. We will continue intravenous amiodarone today, probably change to oral amiodarone tomorrow. Job ID: [id number]
[2019-05-28] MEDS: HYDROcodone/Acetaminophen 5/325 mg Tablet PO PRN ×2 (10:02→19:21)
[2019-05-28] MEDS: Amiodarone 450 MG, Admixture Fee 1 EACH in Dextrose 5% in Water 250 ML IVPB SCH ×2 (10:03→23:54)
--- NOTE | 2019-05-28 15:57 | PRG ---
DATE OF SERVICE: 05/28/2019 SUBJECTIVE: Mr. Mujica is in no distress. His chest tubes are out. He is more lucid today. Appears to have more energy. OBJECTIVE: VITAL SIGNS: His heart rate is in the 70s, blood pressure 128/71, respiratory rate 14, oximetry is 99% on room air. LUNGS: Clear. HEART: Regular rhythm. ABDOMEN: Soft, protuberant. EXTREMITIES: Without edema. His left lower extremity is bandaged. IMAGING STUDIES: His chest x-ray reviewed by me is unchanged. LABORATORY DATA: White count 10.1, hemoglobin 8.2, platelets 157. Sodium 136, potassium 3.7, chloride 110, bicarb 19, BUN 27, and creatinine 1.91 down from 2.36. His intake and output are increasing, positive 1838. IMPRESSION: 1. Status post coronary artery bypass grafting. 2. Obesity. 3. Acute on chronic kidney disease, now with improving renal function after decline as expected. 4. Deconditioning. 5. Paroxysmal atrial fibrillation, possibly aggravated by dobutamine, now in sinus rhythm. He is probably stable to move out of Critical Care Unit if the other physicians agree. Job ID: [id number]
[2019-05-29] MEDS: HYDROcodone/Acetaminophen 5/325 mg Tablet PO PRN ×2 (01:03→12:38)
[2019-05-29 05:27] LABS: #Eosinphils 0.2 thou/uL (0.0-0.7); #Lymphocytes 1.3 thou/uL (1.20-3.40); #Monocytes 0.7 thou/uL (0.11-0.59); #Neutrophils 5.9 thou/uL (1.40-6.50); %Basophils 0.4 % (0.0-1.0); %Eosinophils 2.4 % (0.0-10.0); %Lymphocytes 16.1 % (21.0-51.0); %Monocytes 8.8 % (0.0-10.0); %Neutrophils 72.3 % (42.0-75.0); Hemoglobin 8.2 g/dL (14.0-18.0); Mean Corpuscular HGB CONC 33.2 g/dL (32.0-36.0); Mean Platelet Volume 7.9 fL (7.4-10.4); Platelet Count 209 thou/uL (130-400); RBC Distribution Width 13.3 % (11.5-14.5); Red Blood Cell (RBC) Count 2.41 mill/uL (4.70-6.10); White Blood Cell (WBC) Count 8.1 thou/uL (4.8-10.8)
[2019-05-29 05:50] LABS: Anion Gap 11 mmol/L (10-20); BUN (Urea Nitrogen) 24 mg/dL (8.4-25.7); Calc. Creatinine Clearance 73 mL/min (70-130); Calcium 7.1 mg/dL (7.8-10.44); Carbon Dioxide 20 mmol/L (23-31); Chloride 110 mmol/L (98-107); Estimated GFR-MDRD 48; Glucose 103 mg/dL (83-110); Sodium 137 mmol/L (136-145)
[2019-05-29] MEDS: Aspirin Chewable 81 MG TAB PO SCH (09:10)
[2019-05-29] MEDS: Sodium Chloride 0.9% 1,000 ML IV SCH (09:15)
[2019-05-29] MEDS: Amiodarone 200 MG TAB PO SCH ×3 (09:19→21:28)
--- NOTE | 2019-05-29 09:47 | PRG ---
DATE OF SERVICE: 05/29/2019 SUBJECTIVE: Mr. Mujica is looking a little better every day. He has had no recurrence of his atrial fibrillation. OBJECTIVE: VITAL SIGNS: His heart rate is in 60s, blood pressure 126/70, respiratory rate is 15, and oximetry is 96 on room air. LUNGS: Clear. HEART: Regular rhythm. S1 and S2 are normal. ABDOMEN: Soft and nontender. EXTREMITIES: Without edema. LABORATORY DATA: White count 8.1, hemoglobin 8.2, and platelets 209. Sodium 137, potassium 4, chloride 110, bicarb 20, BUN 24, and creatinine 1.41. IMPRESSION: 1. Status post coronary artery bypass grafting. 2. Obesity. 3. Deconditioning. 4. Transient acute kidney injury, now recovering. This was expected. 5. Prostate cancer, being treated after radiation with hormonal therapy. 6. History of hypertension. PLAN: He is stable to move out of critical care in my opinion. Job ID: [id number]
--- NOTE | 2019-05-29 09:53 | PRG ---
DATE OF SERVICE: 05/29/2019 SUBJECTIVE: Nat Mujica looks more alert and awake today. OBJECTIVE: GENERAL: He is in bed currently, got out of bed some yesterday. No chest pain or pressure. VITAL SIGNS: Blood pressure 119/71; pulse 68, sinus. LUNGS: Clear. CARDIAC: Normal S1 and normal S2. ABDOMEN: Soft and nontender. EXTREMITIES: Mild edema. PERTINENT LABORATORIES: Hemoglobin is 8.2. Creatinine has improved to 1.4, potassium 4.0. ASSESSMENT: 1. Status post coronary bypass grafting. 2. Paroxysmal atrial fibrillation postoperatively, now in sinus rhythm. 3. Renal failure, improving on a daily basis. PLAN: 1. Change from intravenous amiodarone to oral amiodarone. 2. He is on aspirin. 3. Mobilize. 4. Cannot tolerate beta blockers due to blood pressure. Job ID: [id number]
[2019-05-29] MEDS ORDERED: Guaifenesin DM 100-10/5 ML UDCUP PO PRN (13:40)
[2019-05-29] MEDS ORDERED: Mag-Al 1200 mg/1200 mg/30 ML UDCUP PO PRN (13:40)
[2019-05-29] MEDS ORDERED: Zolpidem Tartrate 5 MG TAB PO PRN (13:40)
[2019-05-29] MEDS ORDERED: Artificial Tears 18 DROP/0.9 ML EA EYE PRN (13:40)
[2019-05-29] MEDS ORDERED: Bisacodyl 5 MG TAB PO PRN (13:40)
[2019-05-29] MEDS ORDERED: Nitroglycerin 0.4 MG TAB (25 Tab Bottle) SL PRN (13:40)
[2019-05-29] MEDS ORDERED: Bisacodyl 10 MG SUPP PR PRN (13:40)
[2019-05-29] MEDS ORDERED: Mineral Oil ENEMA PR PRN (13:40)
[2019-05-29] MEDS ORDERED: Docusate 100 MG CAP PO SCH (13:45)
[2019-05-29] MEDS: Docusate 100 MG CAP PO SCH (21:28)
[2019-05-30 05:21] LABS: #Eosinphils 0.2 thou/uL (0.0-0.7); #Lymphocytes 1.1 thou/uL (1.20-3.40); #Monocytes 0.6 thou/uL (0.11-0.59); #Neutrophils 5.6 thou/uL (1.40-6.50); %Basophils 0.2 % (0.0-1.0); %Eosinophils 3.1 % (0.0-10.0); %Lymphocytes 14.4 % (21.0-51.0); %Monocytes 8.2 % (0.0-10.0); %Neutrophils 74.1 % (42.0-75.0); Hemoglobin 8.1 g/dL (14.0-18.0); Mean Corpuscular HGB CONC 33.4 g/dL (32.0-36.0); Mean Corpuscular Hemoglobin 34.1 pg (27.0-31.0); Mean Platelet Volume 7.2 fL (7.4-10.4); Platelet Count 251 thou/uL (130-400); RBC Distribution Width 13.4 % (11.5-14.5); Red Blood Cell (RBC) Count 2.37 mill/uL (4.70-6.10); White Blood Cell (WBC) Count 7.5 thou/uL (4.8-10.8)
[2019-05-30 05:43] LABS: Anion Gap 12 mmol/L (10-20); BUN (Urea Nitrogen) 19 mg/dL (8.4-25.7); Calc. Creatinine Clearance 86 mL/min (70-130); Carbon Dioxide 18 mmol/L (23-31); Chloride 109 mmol/L (98-107); Estimated GFR-MDRD 58; Glucose 115 mg/dL (83-110); Sodium 135 mmol/L (136-145)
[2019-05-30] MEDS: Amiodarone 200 MG TAB PO SCH ×3 (07:42→20:40)
[2019-05-30] MEDS: Docusate 100 MG CAP PO SCH ×2 (07:43→20:40)
[2019-05-30] MEDS: Aspirin Chewable 81 MG TAB PO SCH (07:43)
--- NOTE | 2019-05-30 12:25 | PRG ---
DATE OF SERVICE: 05/30/2019 SUBJECTIVE: This morning, he denies any pain, discomfort, or weak. OBJECTIVE: VITAL SIGNS: Saturations are 97% on 2 L, respiratory rate 20, pulse 73, temperature 98, and blood pressure 130/63. CHEST: No wheezing or crackles. CARDIAC: Normal S1 and S2. No gallops. ABDOMEN: No mass. LABORATORY DATA: Creatinine is 1.2, improved. Hemoglobin and hematocrit of 8 and 24. IMPRESSION: Morbid obesity, status post coronary artery bypass grafting. PLAN: Continue PT, supportive care. Pulmonary will follow at a distance. Call if needed. Job ID: [id number]
[2019-05-30] MEDS ORDERED: Furosemide 40 MG TAB PO SCH (14:00)
[2019-05-30] MEDS ORDERED: Furosemide 40 MG/4 ML VIAL SLOW IVP SCH (18:00)
[2019-05-30] MEDS: HYDROcodone/Acetaminophen 5/325 mg Tablet PO PRN ×2 (18:07→23:46)
--- NOTE | 2019-05-30 18:23 | PDOC.CTH ---
Cardiology Progress Note - Subjective 1. Multivessel CAD. 2. S/P CABG 3. NANCI on CKD. 4.Paroxysmal Post op afib. PLAN: - Continue amioradone PO. - ASA/Statin for life. - Increase PT as tolerated. - Objective Vital Signs Temp Pulse Pulse Pulse Resp BP BP 05/30/19 15:36 98.1 F 81 22 H 05/30/19 14:44 85 79 162/76 H 136/70 05/30/19 11:25 98 F 73 20 05/30/19 10:25 86 75 135/67 136/62 05/30/19 07:38 97.7 F 77 20 BP Pulse Ox Pulse Ox Pulse Ox 05/30/19 15:36 130/71 97 05/30/19 14:44 96 97 05/30/19 11:25 134/63 97 05/30/19 10:25 97 98 05/30/19 07:38 124/58 L 97 Weight 288 lb 4.8 oz 05/29/19 05/30/19 05/31/19 06:59 06:59 06:59 Intake Total 1413 1111 Output Total 835 932 Balance 578 179 - Labs Result Diagrams: 05/30/19 05:03 05/30/19 05:03 - Assessment/Plan 1. Multivessel CAD. 2. S/P CABG 3. NANCI on CKD. 4.Paroxysmal Post op afib. PLAN: - Continue amiodarone PO. - ASA/Statin for life. - Increase PT as tolerated. - Will start low dose lisinopril.
[2019-05-31] MEDS: Furosemide 40 MG/4 ML VIAL SLOW IVP SCH ×2 (07:42→15:18)
[2019-05-31] MEDS: Aspirin Chewable 81 MG TAB PO SCH (09:22)
[2019-05-31] MEDS: Docusate 100 MG CAP PO SCH ×2 (09:22→20:18)
[2019-05-31] MEDS: Amiodarone 200 MG TAB PO SCH ×3 (09:22→20:18)
[2019-05-31] MEDS: Lisinopril 2.5 MG TAB PO SCH (09:22)
[2019-05-31 10:17] LABS: #Eosinphils 0.3 thou/uL (0.0-0.7); #Lymphocytes 1.3 thou/uL (1.20-3.40); #Monocytes 0.5 thou/uL (0.11-0.59); #Neutrophils 4.9 thou/uL (1.40-6.50); %Lymphocytes 18.3 % (21.0-51.0); %Monocytes 7.4 % (0.0-10.0); %Neutrophils 70.3 % (42.0-75.0); Hemoglobin 9.2 g/dL (14.0-18.0); Mean Corpuscular HGB CONC 32.9 g/dL (32.0-36.0); Mean Corpuscular Hemoglobin 33.5 pg (27.0-31.0); Mean Platelet Volume 7.1 fL (7.4-10.4); Platelet Count 343 thou/uL (130-400); RBC Distribution Width 13.3 % (11.5-14.5); Red Blood Cell (RBC) Count 2.73 mill/uL (4.70-6.10); White Blood Cell (WBC) Count 6.9 thou/uL (4.8-10.8)
[2019-05-31 10:44] LABS: Anion Gap 13 mmol/L (10-20); BUN (Urea Nitrogen) 17 mg/dL (8.4-25.7); Calc. Creatinine Clearance 76 mL/min (70-130); Calcium 7.6 mg/dL (7.8-10.44); Carbon Dioxide 23 mmol/L (23-31); Chloride 105 mmol/L (98-107); Estimated GFR-MDRD 50; Glucose 123 mg/dL (83-110); Potassium 3.7 mmol/L (3.5-5.1); Sodium 137 mmol/L (136-145)
--- NOTE | 2019-05-31 14:51 | PDOC.CTH ---
Cardiology Progress Note - Subjective He is doing well. He worked with PT the most he has since his surgery but this was not much. He feels exhausted. He had a BM 2 days ago but has not had one since. - Objective Vital Signs Temp Pulse Pulse Pulse Resp BP BP 05/31/19 12:25 98.2 F 76 14 05/31/19 10:11 84 74 132/74 126/68 05/31/19 08:00 05/31/19 07:47 98.3 F 74 16 05/31/19 04:00 97.4 F L 73 15 BP BP Pulse Ox Pulse Ox Pulse Ox 05/31/19 12:25 130/64 98 05/31/19 10:11 100 98 05/31/19 08:00 98 05/31/19 07:47 168/79 H 98 05/31/19 04:00 127/67 95 Weight 283 lb 4.8 oz 05/30/19 05/31/19 06/01/19 06:59 06:59 06:59 Intake Total 1111 580 Output Total 932 3650 Balance 179 -3070 - Physical Examination General/Neuro: alert & oriented x3, NAD Neck: no JVD present Lungs: unlabored respirations Heart: RRR Abdomen: NT/ND Extremities: other: (no edema) - Telemetry Telemetry Rhythm: NSR - Labs Result Diagrams: 05/31/19 09:59 05/31/19 09:59 - Assessment/Plan 1. Multivessel CAD. 2. S/P CABG 3. NANCI on CKD. 4.Paroxysmal Post op afib. PLAN: - Continue amioradone PO. - ASA/Statin for life. - Increase PT as tolerated.
[2019-05-31] MEDS: HYDROcodone/Acetaminophen 5/325 mg Tablet PO PRN ×2 (15:30→20:18)
[2019-06-01] MEDS: HYDROcodone/Acetaminophen 5/325 mg Tablet PO PRN (05:14)
[2019-06-01] MEDS: Furosemide 40 MG/4 ML VIAL SLOW IVP SCH ×2 (05:16→13:41)
[2019-06-01 05:43] LABS: #Eosinphils 0.3 thou/uL (0.0-0.7); #Lymphocytes 1.2 thou/uL (1.20-3.40); #Monocytes 0.8 thou/uL (0.11-0.59); #Neutrophils 4.8 thou/uL (1.40-6.50); %Basophils 0.1 % (0.0-1.0); %Eosinophils 3.9 % (0.0-10.0); %Lymphocytes 17.5 % (21.0-51.0); %Monocytes 10.7 % (0.0-10.0); %Neutrophils 67.8 % (42.0-75.0); Hemoglobin 8.9 g/dL (14.0-18.0); Mean Corpuscular HGB CONC 31.4 g/dL (32.0-36.0); Mean Platelet Volume 6.9 fL (7.4-10.4); Platelet Count 377 thou/uL (130-400); RBC Distribution Width 13.2 % (11.5-14.5); Red Blood Cell (RBC) Count 2.78 mill/uL (4.70-6.10)
[2019-06-01 06:02] LABS: Anion Gap 11 mmol/L (10-20); BUN (Urea Nitrogen) 17 mg/dL (8.4-25.7); Calc. Creatinine Clearance 79 mL/min (70-130); Calcium 7.6 mg/dL (7.8-10.44); Carbon Dioxide 24 mmol/L (23-31); Chloride 104 mmol/L (98-107); Estimated GFR-MDRD 52; Glucose 101 mg/dL (83-110); Potassium 3.7 mmol/L (3.5-5.1); Sodium 135 mmol/L (136-145)
[2019-06-01] MEDS: Amiodarone 200 MG TAB PO SCH ×3 (08:37→21:10)
[2019-06-01] MEDS: Docusate 100 MG CAP PO SCH ×2 (08:37→21:10)
[2019-06-01] MEDS: Aspirin Chewable 81 MG TAB PO SCH (08:37)
[2019-06-01] MEDS: Lisinopril 2.5 MG TAB PO SCH (08:37)
--- NOTE | 2019-06-01 08:41 | RAD ---
CHEST 1 VIEW: COMPARISON: 05/28/2019. HISTORY: Dyspnea on exertion. Status post CABG. FINDINGS: Sternotomy wires and central venous catheter are redemonstrated. Overlying court recording monitor leads are noted. Heart is enlarged. There is atherosclerosis of the aorta. Lung volumes continue to be dimi nished. Small left-sided effusion. Patchy interstitial opacities may be due to atelectasis or infil trate. Stable calcifications in the left axilla. IMPRESSION: Findings compatible with recent open heart surgery. POS: OFF
--- NOTE | 2019-06-01 09:36 | PRG ---
DATE OF SERVICE: 06/01/2019 SUBJECTIVE: Mr. Mujica feels tired, but no complaints. Otherwise, no chest pain or pressure. He is feeling okay. OBJECTIVE: VITAL SIGNS: Blood pressure is 131/67 and pulse 67, it is regular. LUNGS: Clear. CARDIAC: Normal S1. Normal S2. ABDOMEN: Soft and nontender. EXTREMITIES: There is no edema. ASSESSMENT: 1. Status post bypass surgery, doing well. 2. Paroxysmal atrial fibrillation, improved, controlled on oral amiodarone. 3. Renal failure, improved. Creatinine 1.32, appears back to baseline. PLAN: 1. Continue amiodarone orally. 2. Ambulation. 3. He is on aspirin. 4. Physical therapy. Job ID: [id number]
[2019-06-01] MEDS ORDERED: Simethicone Chewable 80 MG TAB PO SCH (13:30)
[2019-06-01] MEDS: Simethicone Chewable 80 MG TAB PO SCH ×2 (17:37→21:11)
[2019-06-02] MEDS: Furosemide 40 MG/4 ML VIAL SLOW IVP SCH (05:11)
[2019-06-02 06:10] LABS: Anion Gap 13 mmol/L (10-20); BUN (Urea Nitrogen) 17 mg/dL (8.4-25.7); Calc. Creatinine Clearance 79 mL/min (70-130); Calcium 8.4 mg/dL (7.8-10.44); Carbon Dioxide 26 mmol/L (23-31); Chloride 102 mmol/L (98-107); Estimated GFR-MDRD 52; Glucose 103 mg/dL (83-110); Potassium 3.9 mmol/L (3.5-5.1); Sodium 137 mmol/L (136-145)
[2019-06-02] MEDS ORDERED: Magnesium Citrate 300 ML BOT PO SCH (07:15)
[2019-06-02] MEDS: Docusate 100 MG CAP PO SCH ×2 (08:07→20:24)
[2019-06-02] MEDS: Amiodarone 200 MG TAB PO SCH ×3 (08:07→20:24)
[2019-06-02] MEDS: Lisinopril 2.5 MG TAB PO SCH (08:07)
[2019-06-02] MEDS: Aspirin Chewable 81 MG TAB PO SCH (08:07)
[2019-06-02] MEDS: Furosemide 40 MG TAB PO SCH ×2 (08:07→14:05)
[2019-06-02] MEDS: Simethicone Chewable 80 MG TAB PO SCH ×4 (08:07→20:30)
[2019-06-02] MEDS ORDERED: Metolazone 5 MG TAB PO SCH (08:30)
[2019-06-02 08:35] LABS: Blood, Urine Large (Negative); Glucose, Urine (Dipstick) Negative (Negative); Leukocyte Trace (Negative); Nitrite Negative (Negative)
[2019-06-02 08:40] LABS: Clarity Cloudy (Clear)
[2019-06-02 08:56] LABS: Bilirubin Small (Negative); Protein, Urine (Dipstick) > or equal to 300 mg/dL (Neg-Trace)
[2019-06-02 08:57] LABS: Bacteria/HPF Rare-Few HPF (None Seen); RBC/HPF Greater than 50 HPF (0-3); Squamous Epithelial 0-3 HPF (0-3); Yeast-All Forms None Seen HPF (None Seen)
[2019-06-02 08:58] LABS: Urine Culture Reflex Yes Yes
[2019-06-02] MEDS: HYDROcodone/Acetaminophen 5/325 mg Tablet PO PRN ×3 (10:01→22:29)
--- NOTE | 2019-06-02 11:48 | PRG ---
DATE OF SERVICE: 06/02/2019 SUBJECTIVE: Mr. Mujica had some left upper lateral chest pain earlier today, which he thought was gas, which I think it probably was. The patient reports he has not had a bowel movement since the surgery. OBJECTIVE: VITAL SIGNS: Blood pressure 115/69, pulse 80 and it is regular. LUNGS: Clear. CARDIAC: Normal S1, normal S2. ABDOMEN: Soft, nontender. EXTREMITIES: Moderate to mild edema. ASSESSMENT: 1. Atrial fibrillation. Postoperatively, he is now in sinus rhythm. 2. Constipation. 3. Previous bypass surgery. PLAN: 1. He is to receive magnesium citrate. 2. Consider lactulose if that is not effective. 3. Continue amiodarone. 4. With renal insufficiency, need to be cautious with diuretic dose. We will hold metolazone tomorrow until laboratories come back. Job ID: [id number]
--- NOTE | 2019-06-02 13:07 | PRG ---
DATE OF SERVICE: 06/02/2019 SUBJECTIVE: Mr. Mujica is slowly feeling better. He had not eaten much breakfast when I saw him this morning. He is complaining of constipation, was drinking a laxative. OBJECTIVE: VITAL SIGNS: He is afebrile. Heart rate is 72, respiratory rate is 18, oximetry is 96% on 2 L, blood pressure 131/69. LUNGS: Clear. HEART: Regular rhythm. ABDOMEN: Soft and nontender. EXTREMITIES: Without clubbing, cyanosis, or edema. LABORATORY DATA: White count yesterday was 7, hemoglobin was 8.9 yesterday. Sodium 137, potassium 3.9, chloride 102, bicarb 26, BUN 17, creatinine 1.32. IMPRESSION: 1. Status post coronary artery bypass grafting. 2. Transient atrial fibrillation. 3. Deconditioning and obesity. 4. Constipation, currently being addressed. 5. Acute on chronic kidney disease with improving and stable renal function. 6. Prostate cancer, being treated with hormone therapy. 7. History of hypertension. We will continue to follow. transition into rehab/prison in my opinion. Job ID: [id number]
[2019-06-02] MEDS: diphenhydrAMINE 25 MG CAP PO PRN (20:24)
[2019-06-03 06:07] LABS: Anion Gap 11 mmol/L (10-20); BUN (Urea Nitrogen) 20 mg/dL (8.4-25.7); Calc. Creatinine Clearance 66 mL/min (70-130); Calcium 8.3 mg/dL (7.8-10.44); Carbon Dioxide 30 mmol/L (23-31); Chloride 97 mmol/L (98-107); Estimated GFR-MDRD 44; Glucose 98 mg/dL (83-110); Potassium 3.1 mmol/L (3.5-5.1); Sodium 135 mmol/L (136-145)
[2019-06-03] MEDS: Simethicone Chewable 80 MG TAB PO SCH ×4 (08:17→21:52)
[2019-06-03] MEDS: Furosemide 40 MG TAB PO SCH (08:18)
[2019-06-03] MEDS: Aspirin Chewable 81 MG TAB PO SCH (08:18)
[2019-06-03] MEDS: Lisinopril 2.5 MG TAB PO SCH (08:18)
[2019-06-03] MEDS: Amiodarone 200 MG TAB PO SCH ×2 (08:18→21:51)
[2019-06-03] MEDS: Docusate 100 MG CAP PO SCH ×2 (08:18→21:53)
--- NOTE | 2019-06-03 09:43 | PRG ---
DATE OF SERVICE: 06/03/2019 SUBJECTIVE: Mr. Mujica had a tough night last night, a lot of pain after the Arboleda catheter was removed. He apparently had a lot of trouble voiding last night, ultimately was able to void. OBJECTIVE: VITAL SIGNS: His blood pressure this morning 123/71, pulse 77 and sinus. The patient's in and out were -1.34 L yesterday. LUNGS: Clear. CARDIAC: Normal S1. Normal S2. ABDOMEN: Soft, nontender. EXTREMITIES: Only mild edema. LABORATORY DATA: Sodium 135, potassium 3.1, and creatinine is back up to 1.53. ASSESSMENT: 1. Status post bypass surgery. 2. Paroxysmal atrial fibrillation, maintaining sinus rhythm. 3. History of prostate cancer in the remote past, now difficulty voiding. The patient did have radiotherapy and has some difficulty with the urination. PLAN: 1. Add Flomax. 2. Stop diuretics at the present time due to the increased creatinine. 3. Hold lisinopril today. 4. Replete potassium. Job ID: [id number]
[2019-06-03] MEDS: Tamsulosin HCl 0.4 MG CAP PO SCH (10:56)
[2019-06-03] MEDS: Potassium Chloride 20 MEQ TAB PO SCH (12:09)
--- NOTE | 2019-06-03 18:13 | PRG ---
DATE OF SERVICE: 06/03/2019 SUBJECTIVE: Derrick Mujica had no complaints today. He said he is feeling a little bit better. He is also feeling a little stronger. OBJECTIVE: VITAL SIGNS: His vital signs remain stable. LUNGS: Clear. HEART: Regular rhythm. ABDOMEN: Soft. PLAN: Awaiting approval for transfer to some type of skilled facility or cardiac rehab after his bypass surgery. We will sign off. Job ID: [id number]
[2019-06-03] MEDS: HYDROcodone/Acetaminophen 5/325 mg Tablet PO PRN (21:51)
[2019-06-03] MEDS: diphenhydrAMINE 25 MG CAP PO PRN (21:51)
[2019-06-04 06:34] LABS: Anion Gap 14 mmol/L (10-20); BUN (Urea Nitrogen) 21 mg/dL (8.4-25.7); Calc. Creatinine Clearance 61 mL/min (70-130); Calcium 8.5 mg/dL (7.8-10.44); Carbon Dioxide 27 mmol/L (23-31); Chloride 96 mmol/L (98-107); Estimated GFR-MDRD 41; Glucose 98 mg/dL (83-110); Potassium 3.3 mmol/L (3.5-5.1); Sodium 134 mmol/L (136-145)
[2019-06-04] MEDS: Tamsulosin HCl 0.4 MG CAP PO SCH (08:42)
[2019-06-04] MEDS: Docusate 100 MG CAP PO SCH ×2 (08:43→21:25)
[2019-06-04] MEDS: Aspirin Chewable 81 MG TAB PO SCH (08:43)
[2019-06-04] MEDS: Amiodarone 200 MG TAB PO SCH ×2 (08:43→21:25)
[2019-06-04] MEDS: Simethicone Chewable 80 MG TAB PO SCH ×4 (08:43→21:25)
[2019-06-04] MEDS: HYDROcodone/Acetaminophen 5/325 mg Tablet PO PRN ×2 (10:54→21:24)
--- NOTE | 2019-06-04 12:05 | PRG ---
DATE OF SERVICE: 06/04/2019 SUBJECTIVE: Derrick Mujica this morning is awake, responsive, he is weak. OBJECTIVE: VITAL SIGNS: His saturations are 99% on 2 L, respirations 18, temperature 97, blood pressure 170/57. EXTREMITIES: 2+ edema. CHEST: Decreased breath sounds. No wheezing. CARDIAC: Normal S1, S2. No gallops. ABDOMEN: Soft. LABORATORY DATA: Creatinine 1.6. IMPRESSION: Status post CABG, severe deconditioning, marked weakness. PLAN: Continue supportive care, PT placement, we will follow. Job ID: [id number]
[2019-06-04] MEDS: Potassium Chloride 20 MEQ TAB PO SCH (12:25)
--- NOTE | 2019-06-04 14:03 | PDOC.CTH ---
Cardiology Progress Note - Subjective Pt. seen and evaluated. No c/o's. Generalized weakness. - Objective Vital Signs Temp Pulse Pulse Pulse Resp BP BP 06/04/19 09:59 86 78 117/57 L 131/66 06/04/19 08:00 97.5 F L 80 18 06/04/19 04:00 98.5 F 74 20 BP BP Pulse Ox 06/04/19 09:59 06/04/19 08:00 104/54 L 99 06/04/19 04:00 114/56 L 96 Admit Weight 267 lb 8 oz Weight 269 lb 06/03/19 06/04/19 06/05/19 06:59 06:59 06:59 Intake Total 1620 1210 Output Total 1650 Balance -30 1210 - Physical Examination General/Neuro: alert & oriented x3 Neck: no JVD present Lungs: CTA Heart: RRR Abdomen: soft - Labs Result Diagrams: 06/05/19 05:13 06/05/19 05:13 - Assessment/Plan 1. Multivessel CAD with S/P CABG x 3 on 05/25/2019 - stable; on ASA 81mg qd; Not on BBlocker or JENNA/ARE due to hypotensive; will start Lipitor 20mg qd from tonight 2. Post-op Afib - He had about 10 sec Afib episode this AM and converted back to SR; On Amiodarone 200mg BID since 06/03/2019; On ASA 81mg qd; 3. NANCI on CKD - holding Jenna/ARB and diuretic for now 4. HTN - hypotensive now; holding BBlocker and JENNA for now MAR reviewed Pt. seen and eval. by me. I agree with the above A/P. gjmays
[2019-06-04] MEDS ORDERED: Atorvastatin Calcium 20 MG TAB PO SCH (21:00)
[2019-06-04] MEDS: diphenhydrAMINE 25 MG CAP PO PRN (21:25)
[2019-06-05 05:29] LABS: #Eosinphils 0.2 thou/uL (0.0-0.7); #Lymphocytes 0.9 thou/uL (1.20-3.40); #Monocytes 0.6 thou/uL (0.11-0.59); #Neutrophils 5.4 thou/uL (1.40-6.50); %Basophils 0.2 % (0.0-1.0); %Lymphocytes 12.7 % (21.0-51.0); %Monocytes 8.4 % (0.0-10.0); %Neutrophils 75.7 % (42.0-75.0); Mean Corpuscular HGB CONC 31.9 g/dL (32.0-36.0); Mean Corpuscular Hemoglobin 31.8 pg (27.0-31.0); Mean Corpuscular Volume 99.8 fL (78.0-98.0); Mean Platelet Volume 6.9 fL (7.4-10.4); Platelet Count 479 thou/uL (130-400); Red Blood Cell (RBC) Count 2.81 mill/uL (4.70-6.10); White Blood Cell (WBC) Count 7.1 thou/uL (4.8-10.8)
[2019-06-05 05:47] LABS: Anion Gap 12 mmol/L (10-20); BUN (Urea Nitrogen) 23 mg/dL (8.4-25.7); Calc. Creatinine Clearance 62 mL/min (70-130); Carbon Dioxide 30 mmol/L (23-31); Chloride 94 mmol/L (98-107); Estimated GFR-MDRD 42; Glucose 105 mg/dL (83-110); Potassium 3.5 mmol/L (3.5-5.1); Sodium 132 mmol/L (136-145)
[2019-06-05 06:05] VITALS: BMI 38.0
[2019-06-05] MEDS: Tamsulosin HCl 0.4 MG CAP PO SCH (09:06)
[2019-06-05] MEDS: Amiodarone 200 MG TAB PO SCH (09:07)
[2019-06-05] MEDS: Aspirin Chewable 81 MG TAB PO SCH (09:07)
[2019-06-05] MEDS: Simethicone Chewable 80 MG TAB PO SCH ×3 (09:07→17:44)
[2019-06-05] MEDS: Docusate 100 MG CAP PO SCH (09:07)
--- NOTE | 2019-06-05 09:15 | PRG ---
DATE OF SERVICE: 06/05/2019 SUBJECTIVE: Mr. Mujica is not getting up and around much. He feels very weak. OBJECTIVE: VITAL SIGNS: His blood pressure is 113/58, pulse is 77 and it is regular. LUNGS: Clear. CARDIAC: Normal S1, normal S2. ABDOMEN: Soft, nontender. EXTREMITIES: There is only minimal edema now. PERTINENT LABORATORY DATA: Potassium is up to 3.5, sodium is 132, creatinine is 1.58. ASSESSMENT: 1. Status post bypass surgery. 2. Renal insufficiency, stable. 3. Hypertension. Blood pressure controlled. 4. Atrial fibrillation, maintaining sinus rhythm. PLAN: 1. He is on aspirin. 2. Amiodarone 200 mg twice a day. 3. Potassium 20 mEq twice a day. Dose will need to be reduced when he is released. 4. Try to increase ambulation. Job ID: [id number]
[2019-06-05] MEDS: HYDROcodone/Acetaminophen 5/325 mg Tablet PO PRN ×2 (11:31→18:38)
--- NOTE | 2019-06-05 18:51 | PRG ---
DATE OF SERVICE: 06/05/2019 SUBJECTIVE: Derrick Mujica continues to do physical therapy in the hospital. He still does not have a rehab bed. OBJECTIVE: VITAL SIGNS: He is afebrile. Heart rate is 87, respiratory rate is 18, oximetry is 96% on 2 L, blood pressure 122/58. LUNGS: Clear. HEART: Regular rhythm. ABDOMEN: Soft and nontender. EXTREMITIES: Without edema. LABORATORY DATA: White count 7.1, hemoglobin 9, platelets 479. Sodium 132, potassium 3.5, chloride 94, bicarb 30, BUN 23, creatinine 1.58. IMPRESSION: 1. Status post coronary artery bypass grafting. 2. Obesity. 3. Deconditioning. 4. Transient atrial fibrillation, in sinus rhythm now. 5. Acute kidney injury that has recovered to probably what is his baseline. 6. Hypertension. We will increase and continue with therapy until he qualifies for inpatient rehab. Job ID: [id number]
[2019-06-05] MEDS ORDERED: Tamsulosin HCl 0.4 MG CAP PO SCH (21:00)
[2019-06-06 00:46] VITALS: BP 114/53; TEMP 98.4
[2019-06-06] MEDS ORDERED: Potassium Chloride 10 MEQ TAB PO SCH (08:00)
[2019-06-06] MEDS ORDERED: Amiodarone 200 MG TAB PO SCH (09:00)
== END 2019-06-05 20:20 | DRG 234 ==
LOC: CCL 10:25 → 2NO 14:08 → CCU 05-25 07:41 → 2NO 05-29 18:16
PROVIDERS: ADMIT Internal Medicine Cardiovascular Disease; ATTEND Internal Medicine Cardiovascular Disease
PROC: 4A023N7 Measurement of Cardiac Sampling and Pressure, Left Heart, Percutaneous Approach (ICD-10-PCS; 2019-05-22)
PROC: B2111ZZ Fluoroscopy of Multiple Coronary Arteries using Low Osmolar Contrast (ICD-10-PCS; 2019-05-22)
PROC: 02100Z9 Bypass Coronary Artery, One Artery from Left Internal Mammary, Open Approach (ICD-10-PCS; principal; 2019-05-25)
PROC: 021109W Bypass Coronary Artery, Two Arteries from Aorta with Autologous Venous Tissue, Open Approach (ICD-10-PCS; 2019-05-25)
PROC: 06BP4ZZ Excision of Right Saphenous Vein, Percutaneous Endoscopic Approach (ICD-10-PCS; 2019-05-25)
DX: I25.110 Atherosclerotic heart disease of native coronary artery with unstable angina pectoris (principal); N17.9 Acute kidney failure, unspecified; I48.0 Paroxysmal atrial fibrillation; K59.00 Constipation, unspecified; I12.9 Hypertensive chronic kidney disease with stage 1 through stage 4 chronic kidney disease, or unspecified chronic kidney disease; E66.01 Morbid (severe) obesity due to excess calories; E78.5 Hyperlipidemia, unspecified; N18.9 Chronic kidney disease, unspecified; Z79.01 Long term (current) use of anticoagulants; Z68.38 Body mass index [BMI] 38.0-38.9, adult; Z85.46 Personal history of malignant neoplasm of prostate
CPT/HCPCS: 36415; 36416; 36430; 71045; 71046; 76942; 80048; 80053; 81001; 82805; 83880; 84484; 85025; 85610; 85730; 86850; 86900; 86901; 87086; 93005; 93010; 93458; 93798; 93880; 94640; 99152; 99153; C1769; G0278; J0282; J0690; J1100; J1250; J1642; J1644; J1650; J1720; J1815; J1885; J1940; J2001; J2150; J2250; J2405; J2440; J2720; J3010; J3370; J3475; J3480; J3490; J7050; J7070; J7512; J7620; P9045; Q0163; Q9967; S0017

== ENCOUNTER 2019-06-17 13:31 | Inpatient (IN) | payer MEDICARE ==
[2019-06-17 15:10] LABS: #Basophils 0.1 thou/uL (0.0-0.2); #Eosinphils 0.1 thou/uL (0.0-0.7); #Lymphocytes 0.7 thou/uL (1.20-3.40); #Monocytes 0.5 thou/uL (0.11-0.59); #Neutrophils 5.9 thou/uL (1.40-6.50); %Basophils 0.7 % (0.0-1.0); %Lymphocytes 9.7 % (21.0-51.0); %Monocytes 7.1 % (0.0-10.0); %Neutrophils 81.5 % (42.0-75.0); Hemoglobin 9.9 g/dL (14.0-18.0); Mean Corpuscular HGB CONC 32.6 g/dL (32.0-36.0); Mean Corpuscular Hemoglobin 31.3 pg (27.0-31.0); Mean Platelet Volume 6.5 fL (7.4-10.4); Platelet Count 360 thou/uL (130-400); RBC Distribution Width 12.5 % (11.5-14.5); Red Blood Cell (RBC) Count 3.16 mill/uL (4.70-6.10); White Blood Cell (WBC) Count 7.2 thou/uL (4.8-10.8)
[2019-06-17 15:30] LABS: ALT (SGPT) 10 U/L (8-55); AST (SGOT) 14 U/L (5-34); Albumin 3.3 g/dL (3.4-4.8); Alkaline Phosphatase 106 U/L (40-150); Anion Gap 10 mmol/L (10-20); BUN (Urea Nitrogen) 18 mg/dL (8.4-25.7); Bilirubin, Total 0.8 mg/dL (0.2-1.2); Calc. Creatinine Clearance 0 mL/min (70-130); Calcium 8.6 mg/dL (7.8-10.44); Carbon Dioxide 31 mmol/L (23-31); Chloride 88 mmol/L (98-107); Estimated GFR-MDRD 47; Glucose 115 mg/dL (83-110); Potassium 3.5 mmol/L (3.5-5.1); Protein, Total 5.3 g/dL (5.8-8.1); Sodium 125 mmol/L (136-145)
[2019-06-17] MEDS ORDERED: Ondansetron PF 4 MG/2 ML Vial IVP PRN (18:52)
[2019-06-17] MEDS ORDERED: Acetaminophen 325 MG TAB PO PRN (18:52)
[2019-06-17] MEDS ORDERED: HYDROcodone/Acetaminophen 5/325 mg Tablet PO PRN (18:55)
[2019-06-17] MEDS: Lisinopril 5 MG TAB PO SCH (22:27)
[2019-06-17] MEDS: Tamsulosin HCl 0.4 MG CAP PO SCH (22:28)
--- NOTE | 2019-06-18 01:05 | HP ---
HISTORY OF PRESENT ILLNESS: This is an 84-year-old white male who presents with blood in stool and hyponatremia. The patient is status post bypass surgery several weeks ago, which went well. He was then transferred to [facility]. This has not been a very pleasant stay for him. He states the food is terrible. He also recently had a vigorous rectal exam to disimpact his stool. He has a history of prostate implants and was instructed not to have anyone do any rectal exams. His disimpaction occurred approximately 2 days ago, and today blood was noted in his stool. However, in the emergency room, no blood was noted on his rectum. In the midst of his workup, he was found to be significantly hyponatremic with a sodium of 125. The patient is active. The patient stays in bed mostly. He sips water all day. He does not complain of any lightheadedness or dizziness at this time. However, at times, he does get lightheaded. He states he is hungry. He wants regular food. Denies craving a grilled cheese sandwich. 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 Antony in [place], reflux, Peyronie's. PAST SURGICAL HISTORY: Include prostate cancer implants in September 2009, lumbar surgery in 1995, lap ranjit in 2006, left knee arthroscopy, coronary artery bypass in May 2019. FAMILY HISTORY: Father at 73 with heart failure and heart disease. Mother . SOCIAL HISTORY: Former smoker, quit in 1989. He works as a rancher. He is . He has no kids. His main hobby is gambling. MEDICATIONS: Include; 1. Amiodarone 200 daily. 2. Augmentin 875 b.i.d. 3. Aspirin 81 daily. 4. Lipitor 20 daily, the requests this to be stopped. 5. Lasix 20 daily. 6. Lisinopril 5 daily. 7. Protonix 40 daily. 8. Prednisone 5 daily. 9. Flomax 0.4 daily. 10. Zytiga 250 four daily. REVIEW OF SYSTEMS: As above. PHYSICAL EXAMINATION: VITAL SIGNS: Blood pressure 121/75, pulse 66, respirations 17, temperature 98. GENERAL: No acute distress at this time. He is slightly pale appearing. HEENT: Clear. NECK: Supple. HEART: Regular rate and rhythm. LUNGS: Clear. ABDOMEN: Soft and nontender. EXTREMITIES: With no edema. LABORATORY DATA: White count 7.2, H and H 9.9 and 30.4. Sodium 125, potassium 3.5, chloride 88, creatinine 1.43, BUN 18, glucose 115. Liver function is normal. ASSESSMENT: 1. Hyponatremia secondary to polydipsia. However, contributing factors include metastatic prostate cancer and recent diagnosis of pneumonia. 2. Status post coronary artery bypass grafting/coronary artery disease. 3. Hematochezia, resolved secondary to vigorous rectal exam 2 days prior. 4. Constipation. 5. Metastatic prostate cancer. 6. Diabetes. 7. Hypertension. 8. Hyperlipidemia. 9. Recent history pneumonia, on Augmentin; however, at this time, the patient is doing well. PLAN: 1. The main treatment at this time will be fluid restriction to 1000 mL per day. 2. Recheck CBC and BMP in the a.m. 3. MiraLAX daily for constipation. 4. Physical therapy. 5. Advance patient's diet. 6. We will continue to follow. Job ID: [id number]
[2019-06-18 06:45] LABS: #Eosinphils 0.1 thou/uL (0.0-0.7); #Lymphocytes 0.9 thou/uL (1.20-3.40); #Monocytes 0.6 thou/uL (0.11-0.59); #Neutrophils 3.5 thou/uL (1.40-6.50); %Basophils 0.6 % (0.0-1.0); %Eosinophils 2.2 % (0.0-10.0); %Lymphocytes 17.9 % (21.0-51.0); %Monocytes 10.8 % (0.0-10.0); %Neutrophils 68.5 % (42.0-75.0); Hemoglobin 9.9 g/dL (14.0-18.0); Mean Corpuscular HGB CONC 31.7 g/dL (32.0-36.0); Mean Corpuscular Hemoglobin 30.5 pg (27.0-31.0); Mean Corpuscular Volume 96.1 fL (78.0-98.0); Mean Platelet Volume 6.8 fL (7.4-10.4); Platelet Count 356 thou/uL (130-400); RBC Distribution Width 12.6 % (11.5-14.5); Red Blood Cell (RBC) Count 3.23 mill/uL (4.70-6.10)
[2019-06-18 06:58] LABS: Anion Gap 11 mmol/L (10-20); BUN (Urea Nitrogen) 17 mg/dL (8.4-25.7); Calc. Creatinine Clearance 74 mL/min (70-130); Calcium 8.7 mg/dL (7.8-10.44); Carbon Dioxide 29 mmol/L (23-31); Chloride 92 mmol/L (98-107); Estimated GFR-MDRD 54; Glucose 101 mg/dL (83-110); Potassium 3.5 mmol/L (3.5-5.1); Sodium 128 mmol/L (136-145)
[2019-06-18] MEDS: predniSONE 5 MG TAB PO SCH (08:20)
[2019-06-18] MEDS: Furosemide 20 MG TAB PO SCH (08:20)
[2019-06-18] MEDS: Aspirin Chewable 81 MG TAB PO SCH (08:20)
[2019-06-18] MEDS: Amiodarone 200 MG TAB PO SCH (08:20)
[2019-06-18] MEDS: Enoxaparin Sodium 40 MG/0.4 ML SYRINGE SC SCH (08:21)
[2019-06-18] MEDS: Polyethylene Glycol 3350 17 GM Packet PO SCH (08:21)
--- NOTE | 2019-06-18 10:25 | PRG ---
DATE OF SERVICE: 06/18/2019 SUBJECTIVE: The patient is feeling much better this morning. No complaints of lightheadedness or dizziness. OBJECTIVE: VITAL SIGNS: Temperature 97.4, pulse is 68, respirations 16, pulse ox 96, and blood pressure 119/63. HEART: Regular rate and rhythm. LUNGS: Clear. ABDOMEN: Soft. LABORATORY DATA: White count 5.0, H and H are 9.9 and 31.1. Sodium 125 to 128, creatinine 1.28. ASSESSMENT: 1. Hyponatremia secondary to excess water intake. Contributing factors may also be history of pneumonia and also metastatic prostate cancer. 2. Status post coronary artery bypass graft/coronary artery disease. 3. Hematochezia, resolved. 4. Constipation. 5. Metastatic prostate cancer. 6. Diabetes, hypertension, and hyperlipidemia. 7. Recent history of pneumonia. PLAN: 1. Continue to monitor sodium. 2. Continue to monitor for any signs of pneumonia. 3. Dr. Burdick to be covering over the next few days. Hopefully, the patient can go home soon. The patient does desire to be discharged to the home. 4. Physical therapy. Job ID: [id number]
[2019-06-18] MEDS: Lisinopril 5 MG TAB PO SCH (20:27)
[2019-06-18] MEDS: Tamsulosin HCl 0.4 MG CAP PO SCH (20:28)
[2019-06-19 04:41] VITALS: BMI 38.0
[2019-06-19 05:23] LABS: #Eosinphils 0.1 thou/uL (0.0-0.7); #Lymphocytes 1.1 thou/uL (1.20-3.40); #Monocytes 0.7 thou/uL (0.11-0.59); #Neutrophils 3.3 thou/uL (1.40-6.50); %Basophils 0.7 % (0.0-1.0); %Eosinophils 2.4 % (0.0-10.0); %Lymphocytes 20.7 % (21.0-51.0); %Monocytes 12.8 % (0.0-10.0); %Neutrophils 63.4 % (42.0-75.0); Hemoglobin 9.5 g/dL (14.0-18.0); Mean Corpuscular HGB CONC 32.6 g/dL (32.0-36.0); Mean Corpuscular Hemoglobin 31.5 pg (27.0-31.0); Mean Corpuscular Volume 96.6 fL (78.0-98.0); Mean Platelet Volume 6.8 fL (7.4-10.4); Platelet Count 335 thou/uL (130-400); RBC Distribution Width 12.6 % (11.5-14.5); Red Blood Cell (RBC) Count 3.02 mill/uL (4.70-6.10); White Blood Cell (WBC) Count 5.1 thou/uL (4.8-10.8)
[2019-06-19 06:01] LABS: Anion Gap 13 mmol/L (10-20); BUN (Urea Nitrogen) 18 mg/dL (8.4-25.7); Calc. Creatinine Clearance 76 mL/min (70-130); Calcium 8.5 mg/dL (7.8-10.44); Carbon Dioxide 27 mmol/L (23-31); Chloride 93 mmol/L (98-107); Estimated GFR-MDRD 56; Glucose 95 mg/dL (83-110); Potassium 3.6 mmol/L (3.5-5.1); Sodium 129 mmol/L (136-145)
[2019-06-19] MEDS ORDERED: Sodium Chloride 0.9% 10 ML ONE (07:38)
[2019-06-19] MEDS: Amiodarone 200 MG TAB PO SCH (08:06)
[2019-06-19] MEDS: Enoxaparin Sodium 40 MG/0.4 ML SYRINGE SC SCH (08:06)
[2019-06-19] MEDS: Furosemide 20 MG TAB PO SCH (08:06)
[2019-06-19] MEDS: Polyethylene Glycol 3350 17 GM Packet PO SCH (08:06)
[2019-06-19] MEDS: Aspirin Chewable 81 MG TAB PO SCH (08:06)
[2019-06-19] MEDS: predniSONE 5 MG TAB PO SCH (08:06)
[2019-06-20 06:11] LABS: #Eosinphils 0.2 thou/uL (0.0-0.7); #Lymphocytes 1.1 thou/uL (1.20-3.40); #Monocytes 0.8 thou/uL (0.11-0.59); #Neutrophils 3.9 thou/uL (1.40-6.50); %Basophils 0.2 % (0.0-1.0); %Eosinophils 2.6 % (0.0-10.0); %Lymphocytes 18.7 % (21.0-51.0); %Monocytes 12.9 % (0.0-10.0); %Neutrophils 65.5 % (42.0-75.0); Mean Corpuscular Hemoglobin 31.1 pg (27.0-31.0); Mean Corpuscular Volume 97.2 fL (78.0-98.0); Mean Platelet Volume 6.7 fL (7.4-10.4); Platelet Count 310 thou/uL (130-400); RBC Distribution Width 12.8 % (11.5-14.5); Red Blood Cell (RBC) Count 3.21 mill/uL (4.70-6.10); White Blood Cell (WBC) Count 5.9 thou/uL (4.8-10.8)
[2019-06-20 06:33] LABS: Anion Gap 8 mmol/L (10-20); BUN (Urea Nitrogen) 17 mg/dL (8.4-25.7); Calc. Creatinine Clearance 79 mL/min (70-130); Calcium 8.9 mg/dL (7.8-10.44); Carbon Dioxide 31 mmol/L (23-31); Chloride 96 mmol/L (98-107); Estimated GFR-MDRD 59; Glucose 96 mg/dL (83-110); Potassium 3.7 mmol/L (3.5-5.1); Sodium 131 mmol/L (136-145)
[2019-06-20] MEDS: Aspirin Chewable 81 MG TAB PO SCH (08:27)
[2019-06-20] MEDS: Polyethylene Glycol 3350 17 GM Packet PO SCH (08:27)
[2019-06-20] MEDS: Enoxaparin Sodium 40 MG/0.4 ML SYRINGE SC SCH (08:27)
[2019-06-20] MEDS: Furosemide 20 MG TAB PO SCH (08:28)
[2019-06-20] MEDS: predniSONE 5 MG TAB PO SCH (08:28)
[2019-06-20] MEDS: Amiodarone 200 MG TAB PO SCH (08:28)
[2019-06-20 11:16] VITALS: BP 157/65; TEMP 98.4
--- NOTE | 2019-06-20 12:46 | DIS ---
DATE OF ADMISSION: 06/17/2019 DATE OF DISCHARGE: 06/20/2019 ADMIT DIAGNOSES: 1. Hyponatremia. 2. Polydipsia. 3. Recent coronary artery bypass grafting. 4. Metastatic prostate cancer with history of diabetes, hypertension, and hyperlipidemia. DISCHARGE DIAGNOSES: 1. Hyponatremia, resolving. 2. Polydipsia, likely cause along with contributing factors of metastatic prostate cancer and previous recent pneumonia. Also, he is status post coronary artery bypass graft recently. HOSPITAL COURSE: The patient is an 84-year-old male, patient of Dr. Tim Martinez'marisa, came to the hospital from [facility]. He had been discharged to there for rehab after his bypass. He had had a vigorous rectal exam to disimpact stool and after that had some hematochezia that had resolved by the time he had his 1st day here in the hospital. He also had significant dizziness and nausea, found to have hyponatremia. When he was in the emergency room, they found no blood in his rectum, but his sodium was down to 125, he was admitted. His sodium today on day of discharge is up to 131. He is no longer experiencing any symptoms. His vital signs have been stable. He is afebrile. Denies any chest pain. Denies any other bone pain. The plan is to discharge back to home with [facility]. He has been walking with a walker with therapy here in the hospital at least 100 feet. He resumed home medications of amiodarone 200 mg daily, aspirin 81 mg daily, Lipitor 20 mg daily, Lasix 20 mg daily, lisinopril 5 mg daily, Protonix 40 mg daily. He was on prednisone 5 mg daily and Flomax 0.4 mg daily. He was also on Zytiga 250 mg 4 times a day, so he will be discharged to home with [facility], and there is a script written by Dr. Coy for a bedside commode and a walker, and he will need to follow up with Dr. Coy in 1 week. He should already have scheduled followups with his thoracic surgeon and his sand buffer. Job ID: [id number]
--- NOTE | 2019-06-20 17:01 | EKG ---
Test Reason : WEAKNESS Blood Pressure : / mmHG Vent. Rate : 070 BPM Atrial Rate : 070 BPM P-R Int : 170 ms QRS Dur : 102 ms QT Int : 444 ms P-R-T Axes : 015 -12 -26 degrees QTc Int : 479 ms Normal sinus rhythm Confirmed by FLAQUITA CHAPMAN ([id number]), fashion editor ERA GOODMAN ([id number]) on 06/20/2019 5:01:14 PM Referred By: Confirmed By:FLAQUITA CHAPMAN
== END 2019-06-20 15:05 | disposition home or self-care (01) | DRG 641 ==
LOC: ERS 13:31 → 2NO 17:48
PROVIDERS: ADMIT Family Medicine; ATTEND Family Medicine
DX: E87.1 Hypo-osmolality and hyponatremia (principal); I12.9 Hypertensive chronic kidney disease with stage 1 through stage 4 chronic kidney disease, or unspecified chronic kidney disease; K21.9 Gastro-esophageal reflux disease without esophagitis; E78.5 Hyperlipidemia, unspecified; K59.00 Constipation, unspecified; R63.1 Polydipsia; I48.91 Unspecified atrial fibrillation; Z85.46 Personal history of malignant neoplasm of prostate; Z79.01 Long term (current) use of anticoagulants; Z90.49 Acquired absence of other specified parts of digestive tract; Z95.1 Presence of aortocoronary bypass graft; Z87.891 Personal history of nicotine dependence
CPT/HCPCS: 36415; 80048; 80053; 85025; 93005; J1650; J7512

== ENCOUNTER 2019-06-22 12:30 | Emergency (ER) | payer MEDICARE ==
[2019-06-22 13:09] LABS: #Eosinphils 0.1 thou/uL (0.0-0.7); #Lymphocytes 1.1 thou/uL (1.20-3.40); #Monocytes 0.7 thou/uL (0.11-0.59); #Neutrophils 6.7 thou/uL (1.40-6.50); %Basophils 0.2 % (0.0-1.0); %Lymphocytes 12.4 % (21.0-51.0); %Monocytes 8.4 % (0.0-10.0); Hemoglobin 10.4 g/dL (14.0-18.0); Mean Corpuscular HGB CONC 32.4 g/dL (32.0-36.0); Mean Corpuscular Hemoglobin 31.6 pg (27.0-31.0); Mean Corpuscular Volume 97.8 fL (78.0-98.0); Mean Platelet Volume 6.6 fL (7.4-10.4); Platelet Count 286 thou/uL (130-400); RBC Distribution Width 13.1 % (11.5-14.5); Red Blood Cell (RBC) Count 3.28 mill/uL (4.70-6.10); White Blood Cell (WBC) Count 8.6 thou/uL (4.8-10.8)
[2019-06-22 13:22] LABS: INR-International Normal Ratio 1.1; PTT 25.6 SEC (22.9-36.1)
[2019-06-22 13:42] LABS: ALT (SGPT) 9 U/L (8-55); AST (SGOT) 15 U/L (5-34); Albumin 3.4 g/dL (3.4-4.8); Alkaline Phosphatase 102 U/L (40-150); Anion Gap 11 mmol/L (10-20); BUN (Urea Nitrogen) 16 mg/dL (8.4-25.7); Bilirubin, Total 0.9 mg/dL (0.2-1.2); Calc. Creatinine Clearance 0 mL/min (70-130); Calcium 8.8 mg/dL (7.8-10.44); Carbon Dioxide 25 mmol/L (23-31); Chloride 99 mmol/L (98-107); Estimated GFR-MDRD 50; Globulin 2.1 g/dL (2.4-3.5); Glucose 106 mg/dL (83-110); Potassium 3.5 mmol/L (3.5-5.1); Protein, Total 5.5 g/dL (5.8-8.1); Sodium 131 mmol/L (136-145)
[2019-06-22] MEDS ORDERED: Morphine 4 MG/ML VIAL ONE ×2 (13:57→14:56)
[2019-06-22] MEDS ORDERED: Fentanyl 100 MCG/2 ML VIAL ONE (16:45)
[2019-06-22 18:20] LABS: Bilirubin Negative (Negative); Blood, Urine 3+ (Negative); Clarity Clear (Clear); Glucose, Urine (Dipstick) Normal (Negative); Leukocyte 25 Leu/uL (Negative); Nitrite Negative (Negative); Protein, Urine (Dipstick) 20 mg/dL (Neg-Trace); RBC/HPF Greater than 50 HPF (0-3); Squamous Epithelial None Seen HPF (0-3); Urobilinogen Normal mg/dL (Less than 2); WBC/HPF Greater than 50 HPF (0-3)
[2019-06-22 18:31] LABS: Bacteria/HPF None Seen HPF (None Seen); Unclassified Crystals None Seen HPF (None Seen)
[2019-06-22] MEDS ORDERED: cefTRIAXone\\ROCEPHIN 2 GM VIAL ONE (18:44)
--- NOTE | 2019-06-22 23:08 | CON ---
DATE OF CONSULTATION: 06/22/2019 CONSULTING PHYSICIAN: Olu Hutton MD HISTORY OF PRESENT ILLNESS: Mr. Mujica is an 84-year-old white male, who initially presented to the emergency room today for feelings of bladder discomfort and dysuria. He states that he has a history of prostate cancer which was treated with brachytherapy and subsequent salvage radiation external beam therapy for prostate cancer. It is unknown what his Susannah score is, but he currently is seeing an oncologist in [place] who is administering Lupron every 4 months and continues to monitor his PSA. He has had some urinary problems including some urgency and frequency and occasional bladder problems with some difficulty with urination, but has not ever had any significant problems. Approximately 2 days ago, he began experiencing some dysuria and hematuria. This progressively got worse to the point, where today he found it extremely difficult to urinate and could not pass urine very easily. Due to the pain, he came into the emergency room, where he was evaluated and found to be passing bloody urine with incomplete bladder emptying and severe dysuria. Attempts by the emergency room staff to pass a catheter was unsuccessful. They tried a 22-Bulgarian 3-way Arboleda catheter, which did not pass and subsequently a 16-Bulgarian coude catheter which also did not pass. They have now called me for further evaluation and assistance with passage of a catheter. During the interim of when the ER staff attempted catheterization and my arrival at the patient's bedside, the patient subsequently passed 2 large hard cylindrical objects from his urethra, which appeared to be dried and partially calcified blood clots. The patient stated that they expelled great force out from his urethra with immediate urination and significant relief of bladder pain at that point. Since then, he has urinated one subsequent time approximately 30 minutes before my arrival to his bedside and stated that he was able to urinate easily and his pain has mostly gone away. He does have some mild dysuria still present, but otherwise states that he is feeling much better. He does not report a history of urinary tract infection. He does have some urge incontinence. Denies any history of previous urologic surgeries other than the brachytherapy and external beam radiation. He has no history of nephrolithiasis. ALLERGIES: NO KNOWN DRUG ALLERGIES. CURRENT HOME MEDICATIONS: 1. Amiodarone. 2. Aspirin. 3. Atorvastatin. 4. Augmentin. 5. Lasix. 6. Lisinopril. 7. Protonix. 8. Prednisone. 9. Flomax. 10. Zytiga. 11. Prolia. 12. Lupron. PAST MEDICAL HISTORY: 1. Prostate cancer. 2. Stable angina. 3. Hyperlipidemia. 4. Hypertension. 5. Atrial fibrillation. 6. Gastroesophageal reflux disease. 7. Chronic kidney disease, stage 1. 8. Generalized weakness. PAST SURGICAL HISTORY: 1. Coronary artery bypass grafting x3 vessels. 2. Cholecystectomy. 3. Left knee surgery. 4. Spine surgery. 5. Brachytherapy. 6. External beam radiation therapy. FAMILY HISTORY: Noncontributory. SOCIAL HISTORY: The patient denies alcohol abuse, illicit drug use, or smoking history. He is currently and lives with his . REVIEW OF SYSTEMS: A 12-point review of systems was reviewed and otherwise negative other than what was commented on the HPI, specifically the urinary complaints. PHYSICAL EXAMINATION: VITAL SIGNS: Temperature 98.3, pulse 73, respirations 16, blood pressure 153/95, saturations 98% on room air. GENERAL: The patient appears much more comfortable, in no apparent distress. Appears stated age, well nourished, well developed. HEENT: Normocephalic, atraumatic. Pupils are symmetric and round. Trachea midline. Moist mucous membranes. CARDIOVASCULAR: Irregular rhythm. Normal rate. Normal S1, S2. Symmetric pulses. CHEST: No increased work of breathing. Symmetric expansion of the lungs, clear anteriorly. ABDOMEN: Soft, nontender, and nondistended. Positive bowel sounds. No organomegaly. No hepatosplenomegaly. No hernias. GENITOURINARY: The patient is uncircumcised with bilaterally descended testicles. The meatus has no blood, is otherwise unremarkable. There are no penile lesions. RECTAL: Deferred at this time. EXTREMITIES: 1+ edema with mottled skin bilaterally. No obvious cyanosis. No clubbing. MUSCULOSKELETAL: No joint deformities or joint erythema noted. Reasonable range of motion, 4/5 strength, generalized. NEUROLOGIC: Cranial nerves 2 through 12 grossly intact. No obvious focal sensory or motor deficits identified. PSYCHIATRIC: Alert and oriented x3. Appropriate mood and affect. LYMPH: There are no obvious lymph nodes in the cervical, supraclavicular, or axillary regions. SKIN: Warm and dry. No rashes or lesions. Poor turgor. LABORATORY EVALUATION: The full set of labs are in the [facility] system, which I have reviewed. Of note, the patient's white count is 8.6 with a hemoglobin of 10.4. Creatinine is 1.36. Urinalysis demonstrates 3+ blood, greater than 50 white cells, greater than 50 red cells, no bacteria. Leukocyte esterase 25, nitrite negative. No urine culture is currently on file. A urine culture from June 02 is negative. No imaging. ASSESSMENT AND PLAN: An 84-year-old white male with history of prostate cancer status post radiation, currently with recurrent prostate cancer, being managed by an oncologist in [place] on Lupron therapy. From a cancer standpoint, I will defer further treatment to his oncologist as this appears to be managed by the oncologist there with PSA and Lupron. Regarding his urinary symptoms, the patient appeared to have calcified clots within his urethra, which were causing obstruction, which the patient subsequently blew out on his own. It is a little unusual why the clot did not release initially and why they got stuck in the urethra, but the clots appeared to have been almost petrified by the time that they came out. These were sent off for routine pathologic evaluation to confirm their substance and makeup, but I would like to perform an outpatient cystoscopy on the patient to evaluate his bladder, prostatic urethra, and regular urethra to make sure there is no significant stricture disease or any other concerning findings that may contribute toward recurrence of this particular problem. He may require hyperbaric oxygen if he has significant radiation cystitis, but I will defer further treatment until he has had an adequate workup. I will see the patient in my office for a cystoscopy and we will determine what to do from that point going forward based on findings at that time. I explained the cystoscopy to the patient and he states he would like to proceed forward. At the current time, I would recommend the patient receive some Pyridium to help him with his dysuria. He has already received 2 g of Rocephin. There is no current evidence that he has any kind of urinary tract infection, so I do not think a 7-day course of antibiotics is necessary. Should the patient have any recurrent or further urinary problems, he can always contact me. I would recommend continuing on his current medications including Flomax. He probably does not need to stop his blood thinners at the current time as he is not having any significant hematuria unless the hematuria worsens. I am okay with the patient being discharged home and I have given him followup to come back and see me for an outpatient cystoscopy. Job ID: [id number]
== END 2019-06-22 20:30 | disposition home or self-care (01) ==
LOC: ERS 12:30
DX: R31.0 Gross hematuria (principal); R33.9 Retention of urine, unspecified; I12.9 Hypertensive chronic kidney disease with stage 1 through stage 4 chronic kidney disease, or unspecified chronic kidney disease; N18.1 Chronic kidney disease, stage 1; E78.5 Hyperlipidemia, unspecified; I48.91 Unspecified atrial fibrillation; K21.9 Gastro-esophageal reflux disease without esophagitis; Z79.82 Long term (current) use of aspirin; Z79.899 Other long term (current) drug therapy; Z79.52 Long term (current) use of systemic steroids
CPT/HCPCS: 36415; 51798; 80053; 81003; 81015; 85025; 85610; 85730; 87086; 88305; 96374; 96375; 96376; J0696; J2270; J3010

== ENCOUNTER 2019-09-23 14:07 | Emergency (ER) | payer MEDICARE ==
[2019-09-23 14:37] LABS: #Basophils 0.1 thou/uL (0.0-0.2); #Eosinphils 0.2 thou/uL (0.0-0.7); #Lymphocytes 1.8 thou/uL (1.20-3.40); #Monocytes 0.6 thou/uL (0.11-0.59); #Neutrophils 5.7 thou/uL (1.40-6.50); %Basophils 0.7 % (0.0-1.0); %Eosinophils 1.9 % (0.0-10.0); %Lymphocytes 21.4 % (21.0-51.0); %Monocytes 7.6 % (0.0-10.0); %Neutrophils 68.5 % (42.0-75.0); Hemoglobin 12.8 g/dL (14.0-18.0); Mean Corpuscular HGB CONC 32.7 g/dL (32.0-36.0); Mean Corpuscular Hemoglobin 31.5 pg (27.0-31.0); Mean Corpuscular Volume 96.3 fL (78.0-98.0); Mean Platelet Volume 7.4 fL (7.4-10.4); Platelet Count 319 thou/uL (130-400); RBC Distribution Width 13.4 % (11.5-14.5); Red Blood Cell (RBC) Count 4.08 mill/uL (4.70-6.10); White Blood Cell (WBC) Count 8.3 thou/uL (4.8-10.8)
[2019-09-23 15:01] LABS: ALT (SGPT) 9 U/L (8-55); AST (SGOT) 11 U/L (5-34); Albumin 3.3 g/dL (3.4-4.8); Alkaline Phosphatase 70 U/L (40-110); Anion Gap 10 mmol/L (10-20); BUN (Urea Nitrogen) 11 mg/dL (8.4-25.7); Bilirubin, Total 0.8 mg/dL (0.2-1.2); CK (CPK) 46 U/L (30-200); Calc. Creatinine Clearance 0 mL/min (70-130); Calcium 8.3 mg/dL (7.8-10.44); Carbon Dioxide 26 mmol/L (23-31); Chloride 104 mmol/L (98-107); Estimated GFR-MDRD 45; Globulin 2.2 g/dL (2.4-3.5); Glucose 131 mg/dL (83-110); Lipase 4 U/L (8-78); Magnesium 2.2 mg/dL (1.6-2.6); Potassium 3.3 mmol/L (3.5-5.1); Protein, Total 5.5 g/dL (5.8-8.1); Sodium 137 mmol/L (136-145)
[2019-09-23] MEDS ORDERED: Ondansetron PF 4 MG/2 ML Vial ONE (15:20)
[2019-09-23 15:21] LABS: CKMB 0.5 ng/mL (0-6.6)
[2019-09-23] MEDS ORDERED: Fentanyl 100 MCG/2 ML VIAL ONE (15:25)
--- NOTE | 2019-09-23 15:25 | RAD ---
XR Chest 1 View Portable HISTORY: Weakness COMPARISON: 06/01/2019 FINDINGS: Changes of median sternotomy are again seen. The heart size is borderline. No lobar consoli dation, pneumothoraces, issa pulmonary edema or large effusions are identified. There are degenerative changes in the shoulder joints.
[2019-09-23] MEDS ORDERED: Aspirin 325 MG TAB ONE (15:57)
[2019-09-23] MEDS ORDERED: Famotidine/PF 20 mg/2ml Vial ONE (16:29)
== END 2019-09-23 17:55 | disposition home or self-care (01) ==
LOC: ERS 14:07
DX: R11.2 Nausea with vomiting, unspecified (principal); R53.1 Weakness; I12.9 Hypertensive chronic kidney disease with stage 1 through stage 4 chronic kidney disease, or unspecified chronic kidney disease; E78.5 Hyperlipidemia, unspecified; I48.91 Unspecified atrial fibrillation; N18.1 Chronic kidney disease, stage 1; I20.9 Angina pectoris, unspecified; Z79.82 Long term (current) use of aspirin; Z79.899 Other long term (current) drug therapy
CPT/HCPCS: 36415; 71045; 80053; 82550; 82553; 83690; 83735; 83880; 84484; 85025; 93005; 96361; 96374; 96375; J2405; J3010; S0028

== ENCOUNTER 2021-05-11 10:41 | Inpatient (IN) | payer MEDICARE ==
[~2021-05-11 10:41] MED LIST: Iopamidol-370 76% 500 ML 1 ML ONE
[2021-05-11 11:26] LABS: #Eosinphils 0.2 thou/uL (0.0-0.7); #Lymphocytes 3.9 thou/uL (1.20-3.40); %Basophils 0.2 % (0.0-1.0); %Eosinophils 1.7 % (0.0-10.0); %Lymphocytes 29.6 % (21.0-51.0); %Monocytes 7.5 % (0.0-10.0); %Neutrophils 60.9 % (42.0-75.0); Hemoglobin 12.6 g/dL (14.0-18.0); Mean Corpuscular HGB CONC 31.9 g/dL (32.0-36.0); Mean Corpuscular Hemoglobin 31.9 pg (27.0-31.0); Mean Platelet Volume 7.4 fL (7.4-10.4); Platelet Count 227 thou/uL (130-400); RBC Distribution Width 13.2 % (11.5-14.5); Red Blood Cell (RBC) Count 3.94 mill/uL (4.70-6.10); White Blood Cell (WBC) Count 13.1 thou/uL (4.8-10.8)
[2021-05-11 11:39] LABS: PTT 23.6 sec (22.9-36.1); Prothrombin Time 13.4 sec (12.0-14.7)
[2021-05-11] MEDS ORDERED: Morphine 4 MG/ML VIAL ONE (12:01)
[2021-05-11] MEDS ORDERED: Ondansetron PF 4 MG/2 ML Vial ONE (12:01)
[2021-05-11 12:13] LABS: ALT (SGPT) 11 U/L (8-55); AST (SGOT) 16 U/L (5-34); Albumin 3.3 g/dL (3.4-4.8); Alkaline Phosphatase 59 U/L (40-110); Anion Gap 14 mmol/L (10-20); BUN (Urea Nitrogen) 32 mg/dL (8.4-25.7); Bilirubin, Total 0.7 mg/dL (0.2-1.2); Calc. Creatinine Clearance 0 mL/min (70-130); Calcium 9.1 mg/dL (7.8-10.44); Carbon Dioxide 20 mmol/L (23-31); Chloride 108 mmol/L (98-107); Glucose 110 mg/dL (83-110); Potassium 4.5 mmol/L (3.5-5.1); Protein, Total 5.3 g/dL (5.8-8.1); Sodium 137 mmol/L (136-145)
[2021-05-11 12:43] LABS: PTT 27.2 sec (22.9-36.1); Prothrombin Time 13.4 sec (12.0-14.7)
[2021-05-11] MEDS ORDERED: Piperacillin/Tazobactam 4.5 GM VIAL ONE (14:36)
[2021-05-11] MEDS ORDERED: Ondansetron ODT 4 MG TAB PO PRN (14:47)
[2021-05-11] MEDS ORDERED: Ondansetron PF 4 MG/2 ML Vial IVP PRN (14:47)
[2021-05-11] MEDS ORDERED: Acetaminophen 650 MG Suppository PR PRN (14:47)
[2021-05-11] MEDS ORDERED: Acetaminophen 325 MG TAB PO PRN (14:47)
[2021-05-11] MEDS ORDERED: Gabapentin 100 MG CAP PO SCH (15:31)
[2021-05-11] MEDS ORDERED: ceFAZolin 1 GM/D5W 1 GM in Premix Bag 1 BAG IVPB SCH (16:00)
[2021-05-11 18:02] VITALS: BMI 36.6
[2021-05-11] MEDS: HYDROcodone/Acetaminophen 10/325 mg Tablet PO PRN (18:19)
[2021-05-11] MEDS: ceFAZolin 1 GM/D5W 1 GM in Premix Bag 1 BAG IVPB SCH (18:21)
[2021-05-11] MEDS: Gabapentin 300 MG CAP PO SCH (21:44)
[2021-05-11] MEDS: Senokot S 8.6-50 MG TAB PO SCH (21:46)
[2021-05-11] MEDS: Morphine 2 MG/ML VIAL SLOW IVP PRN (21:46)
[2021-05-11] MEDS: metroNIDAZOLE 500 MG in Premix Bag 1 BAG IVPB SCH (21:46)
[2021-05-12] MEDS: Morphine 2 MG/ML VIAL SLOW IVP PRN ×2 (02:22→18:46)
[2021-05-12] MEDS: ceFAZolin 1 GM/D5W 1 GM in Premix Bag 1 BAG IVPB SCH (03:44)
[2021-05-12 05:56] LABS: Anion Gap 13 mmol/L (10-20); BUN (Urea Nitrogen) 23 mg/dL (8.4-25.7); Calc. Creatinine Clearance 69 mL/min (70-130); Calcium 8.7 mg/dL (7.8-10.44); Carbon Dioxide 20 mmol/L (23-31); Chloride 110 mmol/L (98-107); Glucose 115 mg/dL (83-110); Potassium 4.9 mmol/L (3.5-5.1); Sodium 138 mmol/L (136-145)
[2021-05-12] MEDS: metroNIDAZOLE 500 MG in Premix Bag 1 BAG IVPB SCH (06:23)
[2021-05-12 07:20] LABS: #Eosinphils 0.1 thou/uL (0.0-0.7); #Lymphocytes 3.3 thou/uL (1.20-3.40); #Monocytes 0.8 thou/uL (0.11-0.59); #Neutrophils 7.1 thou/uL (1.40-6.50); %Basophils 0.1 % (0.0-1.0); %Eosinophils 0.8 % (0.0-10.0); %Lymphocytes 29.2 % (21.0-51.0); %Monocytes 6.8 % (0.0-10.0); %Neutrophils 63.2 % (42.0-75.0); Hemoglobin 11.4 g/dL (14.0-18.0); Mean Corpuscular HGB CONC 33.5 g/dL (32.0-36.0); Mean Corpuscular Hemoglobin 33.5 pg (27.0-31.0); Mean Platelet Volume 7.6 fL (7.4-10.4); Platelet Count 188 thou/uL (130-400); RBC Distribution Width 13.1 % (11.5-14.5); Red Blood Cell (RBC) Count 3.41 mill/uL (4.70-6.10); White Blood Cell (WBC) Count 11.2 thou/uL (4.8-10.8)
[2021-05-12] MEDS: Gabapentin 300 MG CAP PO SCH ×2 (08:43→21:43)
[2021-05-12] MEDS: HYDROcodone/Acetaminophen 10/325 mg Tablet PO PRN ×3 (08:47→21:47)
[2021-05-12] MEDS: Piperacillin/Tazobactam 4.5 GM in Sodium Chloride 0.9% 100 ML IVPB SCH ×2 (08:48→17:46)
[2021-05-12] MEDS: Senokot S 8.6-50 MG TAB PO SCH ×2 (08:49→21:42)
[2021-05-12] MEDS: Polyethylene Glycol 3350 17 GM Packet PO SCH (08:49)
[2021-05-12] MEDS ORDERED: Benzonatate 100 MG CAP PO PRN (17:14)
[2021-05-12] MEDS ORDERED: Gabapentin 300 MG CAP PO SCH (17:15)
[2021-05-12] MEDS ORDERED: Losartan 25 MG TAB PO SCH (17:30)
[2021-05-12] MEDS ORDERED: Carvedilol 6.25 MG TAB PO SCH (17:30)
[2021-05-12] MEDS: Carvedilol 6.25 MG TAB PO SCH (21:42)
[2021-05-12] MEDS: BETAMETHASONE 0.05% TOP SCH (21:43)
[2021-05-12] MEDS: Tamsulosin HCl 0.4 MG CAP PO SCH (21:44)
[2021-05-13] MEDS: HYDROcodone/Acetaminophen 10/325 mg Tablet PO PRN ×4 (02:13→22:34)
[2021-05-13] MEDS: Piperacillin/Tazobactam 4.5 GM in Sodium Chloride 0.9% 100 ML IVPB SCH ×3 (02:14→16:35)
[2021-05-13] MEDS: Gabapentin 300 MG CAP PO SCH ×3 (08:42→20:16)
[2021-05-13] MEDS: Losartan 25 MG TAB PO SCH (08:43)
[2021-05-13] MEDS: Polyethylene Glycol 3350 17 GM Packet PO SCH (08:44)
[2021-05-13] MEDS: Senokot S 8.6-50 MG TAB PO SCH ×2 (08:44→20:17)
[2021-05-13] MEDS: ABIRATERONE ACETATE 250 MG TABLET PO SCH (08:45)
[2021-05-13] MEDS: BETAMETHASONE 0.05% TOP SCH ×2 (08:45→20:19)
[2021-05-13] MEDS: Carvedilol 6.25 MG TAB PO SCH ×2 (08:45→20:15)
[2021-05-13] MEDS ORDERED: Magnevist 469MG/ML 20 ML VIAL ONE ×3 (10:23)
[2021-05-13] MEDS: Morphine 2 MG/ML VIAL SLOW IVP PRN (10:27)
[2021-05-13] MEDS: Tamsulosin HCl 0.4 MG CAP PO SCH (20:17)
[2021-05-14] MEDS: Piperacillin/Tazobactam 4.5 GM in Sodium Chloride 0.9% 100 ML IVPB SCH ×3 (00:57→16:48)
[2021-05-14] MEDS: Morphine 2 MG/ML VIAL SLOW IVP PRN ×2 (01:43→06:57)
[2021-05-14 04:49] LABS: #Basophils 0.1 thou/uL (0.0-0.2); #Eosinphils 0.2 thou/uL (0.0-0.7); #Lymphocytes 2.4 thou/uL (1.20-3.40); #Monocytes 0.7 thou/uL (0.11-0.59); #Neutrophils 4.1 thou/uL (1.40-6.50); %Basophils 0.8 % (0.0-1.0); %Eosinophils 2.3 % (0.0-10.0); %Lymphocytes 32.5 % (21.0-51.0); %Monocytes 9.3 % (0.0-10.0); %Neutrophils 55.1 % (42.0-75.0); Hemoglobin 9.9 g/dL (14.0-18.0); Mean Corpuscular HGB CONC 32.5 g/dL (32.0-36.0); Mean Corpuscular Hemoglobin 33.1 pg (27.0-31.0); Mean Platelet Volume 7.3 fL (7.4-10.4); Platelet Count 211 thou/uL (130-400); RBC Distribution Width 13.1 % (11.5-14.5); White Blood Cell (WBC) Count 7.4 thou/uL (4.8-10.8)
[2021-05-14 05:12] LABS: Anion Gap 9 mmol/L (10-20); BUN (Urea Nitrogen) 18 mg/dL (8.4-25.7); Calc. Creatinine Clearance 72 mL/min (70-130); Calcium 8.2 mg/dL (7.8-10.44); Carbon Dioxide 25 mmol/L (23-31); Chloride 107 mmol/L (98-107); Glucose 119 mg/dL (83-110); Potassium 4.3 mmol/L (3.5-5.1); Sodium 137 mmol/L (136-145)
[2021-05-14] MEDS ORDERED: valACYclovir 500 MG TAB PO SCH (10:00)
[2021-05-14] MEDS: Polyethylene Glycol 3350 17 GM Packet PO SCH ×2 (10:39→10:47)
[2021-05-14] MEDS: Carvedilol 6.25 MG TAB PO SCH ×2 (10:40→20:41)
[2021-05-14] MEDS: Gabapentin 300 MG CAP PO SCH ×3 (10:40→20:42)
[2021-05-14] MEDS: Losartan 25 MG TAB PO SCH (10:40)
[2021-05-14] MEDS: Senokot S 8.6-50 MG TAB PO SCH ×2 (10:40→20:42)
[2021-05-14] MEDS: BETAMETHASONE 0.05% TOP SCH ×2 (10:41→20:45)
[2021-05-14] MEDS: ABIRATERONE ACETATE 250 MG TABLET PO SCH (11:33)
[2021-05-14] MEDS: valACYclovir 500 MG TAB PO SCH ×2 (14:24→21:13)
[2021-05-14] MEDS: Morphine 4 MG/ML VIAL SLOW IVP PRN (14:24)
[2021-05-14] MEDS: Tamsulosin HCl 0.4 MG CAP PO SCH (20:42)
[2021-05-14] MEDS: HYDROcodone/Acetaminophen 10/325 mg Tablet PO PRN (21:21)
[2021-05-15] MEDS: Piperacillin/Tazobactam 4.5 GM in Sodium Chloride 0.9% 100 ML IVPB SCH ×3 (00:44→17:20)
[2021-05-15] MEDS: Morphine 4 MG/ML VIAL SLOW IVP PRN ×3 (00:56→13:27)
[2021-05-15 06:34] LABS: Hemoglobin 10.4 g/dL (14.0-18.0); Platelet Count 216 thou/uL (130-400)
[2021-05-15 06:56] LABS: Anion Gap 10 mmol/L (10-20); BUN (Urea Nitrogen) 17 mg/dL (8.4-25.7); Calc. Creatinine Clearance 67 mL/min (70-130); Calcium 8.5 mg/dL (7.8-10.44); Carbon Dioxide 25 mmol/L (23-31); Chloride 107 mmol/L (98-107); Glucose 108 mg/dL (83-110); Potassium 4.3 mmol/L (3.5-5.1); Sodium 138 mmol/L (136-145)
[2021-05-15] MEDS: Gabapentin 300 MG CAP PO SCH ×3 (09:35→20:06)
[2021-05-15] MEDS: valACYclovir 500 MG TAB PO SCH ×3 (09:35→20:11)
[2021-05-15] MEDS: Carvedilol 6.25 MG TAB PO SCH ×2 (09:35→20:09)
[2021-05-15] MEDS: Fluticasone Propionate Nasal Spray 16 gm Bottle NASAL SCH (09:36)
[2021-05-15] MEDS: Losartan 25 MG TAB PO SCH (09:36)
[2021-05-15] MEDS: BETAMETHASONE 0.05% TOP SCH ×2 (09:37→20:05)
[2021-05-15] MEDS: Polyethylene Glycol 3350 17 GM Packet PO SCH (09:38)
[2021-05-15] MEDS: ABIRATERONE ACETATE 250 MG TABLET PO SCH (09:38)
[2021-05-15] MEDS: Senokot S 8.6-50 MG TAB PO SCH (09:38)
[2021-05-15] MEDS ORDERED: Furosemide 40 MG/4 ML VIAL SLOW IVP SCH (16:45)
[2021-05-15] MEDS: Pregabalin 50 MG CAP PO SCH (20:05)
[2021-05-15] MEDS: Tamsulosin HCl 0.4 MG CAP PO SCH (20:06)
[2021-05-16] MEDS: Piperacillin/Tazobactam 4.5 GM in Sodium Chloride 0.9% 100 ML IVPB SCH ×3 (00:28→16:04)
[2021-05-16] MEDS: Morphine 4 MG/ML VIAL SLOW IVP PRN ×2 (00:29→16:04)
[2021-05-16] MEDS: HYDROcodone/Acetaminophen 10/325 mg Tablet PO PRN ×2 (06:18→14:39)
[2021-05-16 07:24] LABS: #Basophils 0.1 thou/uL (0.0-0.2); #Eosinphils 0.3 thou/uL (0.0-0.7); #Lymphocytes 3.6 thou/uL (1.20-3.40); #Monocytes 0.6 thou/uL (0.11-0.59); #Neutrophils 3.8 thou/uL (1.40-6.50); %Basophils 0.7 % (0.0-1.0); %Eosinophils 4.1 % (0.0-10.0); %Lymphocytes 42.9 % (21.0-51.0); %Monocytes 7.3 % (0.0-10.0); Mean Corpuscular HGB CONC 32.9 g/dL (32.0-36.0); Mean Corpuscular Hemoglobin 33.6 pg (27.0-31.0); Mean Platelet Volume 7.2 fL (7.4-10.4); Platelet Count 241 thou/uL (130-400); RBC Distribution Width 13.2 % (11.5-14.5); Red Blood Cell (RBC) Count 3.26 mill/uL (4.70-6.10); White Blood Cell (WBC) Count 8.4 thou/uL (4.8-10.8)
[2021-05-16 07:46] LABS: Anion Gap 12 mmol/L (10-20); BUN (Urea Nitrogen) 18 mg/dL (8.4-25.7); Calc. Creatinine Clearance 66 mL/min (70-130); Carbon Dioxide 28 mmol/L (23-31); Chloride 105 mmol/L (98-107); Glucose 104 mg/dL (83-110); Potassium 4.2 mmol/L (3.5-5.1); Sodium 141 mmol/L (136-145)
[2021-05-16] MEDS: Carvedilol 6.25 MG TAB PO SCH ×2 (08:51→20:35)
[2021-05-16] MEDS: Losartan 25 MG TAB PO SCH (08:52)
[2021-05-16] MEDS: valACYclovir 500 MG TAB PO SCH ×3 (08:52→20:36)
[2021-05-16] MEDS: Pregabalin 50 MG CAP PO SCH ×2 (08:52→20:34)
[2021-05-16] MEDS: Gabapentin 300 MG CAP PO SCH ×3 (08:53→20:35)
[2021-05-16] MEDS: BETAMETHASONE 0.05% TOP SCH (08:55)
[2021-05-16] MEDS: ABIRATERONE ACETATE 250 MG TABLET PO SCH (08:55)
[2021-05-16] MEDS: Fluticasone Propionate Nasal Spray 16 gm Bottle NASAL SCH (08:55)
[2021-05-16] MEDS: Tamsulosin HCl 0.4 MG CAP PO SCH (20:35)
[2021-05-17] MEDS: Piperacillin/Tazobactam 4.5 GM in Sodium Chloride 0.9% 100 ML IVPB SCH ×3 (00:46→16:11)
[2021-05-17] MEDS: Morphine 4 MG/ML VIAL SLOW IVP PRN ×4 (00:46→18:28)
[2021-05-17] MEDS: HYDROcodone/Acetaminophen 10/325 mg Tablet PO PRN (02:04)
[2021-05-17] MEDS: Losartan 25 MG TAB PO SCH (08:22)
[2021-05-17] MEDS: Pregabalin 50 MG CAP PO SCH ×2 (08:22→22:09)
[2021-05-17] MEDS: Carvedilol 6.25 MG TAB PO SCH ×2 (08:22→22:10)
[2021-05-17] MEDS: Gabapentin 300 MG CAP PO SCH ×3 (08:22→22:11)
[2021-05-17] MEDS: valACYclovir 500 MG TAB PO SCH ×3 (08:23→22:20)
[2021-05-17] MEDS: ABIRATERONE ACETATE 250 MG TABLET PO SCH (08:25)
[2021-05-17] MEDS: Fluticasone Propionate Nasal Spray 16 gm Bottle NASAL SCH (09:24)
[2021-05-17] MEDS: Tamsulosin HCl 0.4 MG CAP PO SCH (22:10)
[2021-05-18] MEDS: Piperacillin/Tazobactam 4.5 GM in Sodium Chloride 0.9% 100 ML IVPB SCH (01:03)
[2021-05-18] MEDS: Morphine 4 MG/ML VIAL SLOW IVP PRN ×3 (01:57→20:43)
[2021-05-18] MEDS: Pregabalin 50 MG CAP PO SCH ×2 (07:49→20:45)
[2021-05-18] MEDS: Carvedilol 6.25 MG TAB PO SCH ×2 (07:50→20:19)
[2021-05-18] MEDS: Gabapentin 300 MG CAP PO SCH ×3 (07:50→20:19)
[2021-05-18] MEDS: Amoxicillin/Potassium Clav 875 MG TAB PO SCH ×2 (07:50→20:19)
[2021-05-18] MEDS: Losartan 25 MG TAB PO SCH (07:51)
[2021-05-18] MEDS: Fluticasone Propionate Nasal Spray 16 gm Bottle NASAL SCH (07:51)
[2021-05-18] MEDS: ABIRATERONE ACETATE 250 MG TABLET PO SCH (07:51)
[2021-05-18] MEDS: HYDROcodone/Acetaminophen 10/325 mg Tablet PO PRN (07:52)
[2021-05-18 08:49] LABS: #Eosinphils 0.4 thou/uL (0.0-0.7); #Monocytes 0.5 thou/uL (0.11-0.59); #Neutrophils 5.3 thou/uL (1.40-6.50); %Basophils 0.3 % (0.0-1.0); %Eosinophils 4.4 % (0.0-10.0); %Lymphocytes 32.6 % (21.0-51.0); %Monocytes 5.3 % (0.0-10.0); %Neutrophils 57.4 % (42.0-75.0); Hemoglobin 10.7 g/dL (14.0-18.0); Mean Corpuscular HGB CONC 31.8 g/dL (32.0-36.0); Mean Corpuscular Hemoglobin 32.5 pg (27.0-31.0); Mean Platelet Volume 7.1 fL (7.4-10.4); Platelet Count 275 thou/uL (130-400); RBC Distribution Width 13.3 % (11.5-14.5); Red Blood Cell (RBC) Count 3.29 mill/uL (4.70-6.10); White Blood Cell (WBC) Count 9.2 thou/uL (4.8-10.8)
[2021-05-18 08:58] LABS: ALT (SGPT) 10 U/L (8-55); AST (SGOT) 11 U/L (5-34); Albumin 3.1 g/dL (3.4-4.8); Alkaline Phosphatase 70 U/L (40-110); Anion Gap 10 mmol/L (10-20); BUN (Urea Nitrogen) 18 mg/dL (8.4-25.7); Bilirubin, Total 0.5 mg/dL (0.2-1.2); Calc. Creatinine Clearance 70 mL/min (70-130); Calcium 9.1 mg/dL (7.8-10.44); Carbon Dioxide 27 mmol/L (23-31); Chloride 105 mmol/L (98-107); Globulin 2.3 g/dL (2.4-3.5); Glucose 109 mg/dL (83-110); Potassium 4.3 mmol/L (3.5-5.1); Protein, Total 5.4 g/dL (5.8-8.1); Sodium 138 mmol/L (136-145)
[2021-05-18] MEDS: valACYclovir 500 MG TAB PO SCH ×3 (10:42→20:43)
[2021-05-18] MEDS ORDERED: Polyethylene Glycol 3350 17 GM Packet PO SCH (17:00)
[2021-05-18] MEDS: Tamsulosin HCl 0.4 MG CAP PO SCH (20:19)
[2021-05-19] MEDS: Morphine 4 MG/ML VIAL SLOW IVP PRN ×3 (01:08→09:30)
[2021-05-19] MEDS: Pregabalin 50 MG CAP PO SCH ×2 (09:11→21:11)
[2021-05-19] MEDS: Polyethylene Glycol 3350 17 GM Packet PO SCH (09:11)
[2021-05-19] MEDS: Amoxicillin/Potassium Clav 875 MG TAB PO SCH ×2 (09:12→21:12)
[2021-05-19] MEDS: Losartan 25 MG TAB PO SCH (09:13)
[2021-05-19] MEDS: Carvedilol 6.25 MG TAB PO SCH ×2 (09:13→21:13)
[2021-05-19] MEDS: Gabapentin 300 MG CAP PO SCH ×3 (09:13→21:12)
[2021-05-19] MEDS: ABIRATERONE ACETATE 250 MG TABLET PO SCH (09:28)
[2021-05-19] MEDS: Fluticasone Propionate Nasal Spray 16 gm Bottle NASAL SCH (09:29)
[2021-05-19] MEDS: valACYclovir 500 MG TAB PO SCH ×3 (09:36→21:11)
[2021-05-19 12:32] LABS: SARS-CoV-2 NAA Rapid Test Not Detected (NotDetected)
[2021-05-19] MEDS ORDERED: fentaNYL 50 mcg/hour Patch TD SCH (15:00)
[2021-05-19] MEDS: HYDROcodone/Acetaminophen 10/325 mg Tablet PO PRN (21:11)
[2021-05-19] MEDS: Tamsulosin HCl 0.4 MG CAP PO SCH (21:12)
[2021-05-20] MEDS: HYDROcodone/Acetaminophen 10/325 mg Tablet PO PRN ×3 (02:22→17:53)
[2021-05-20] MEDS: Polyethylene Glycol 3350 17 GM Packet PO SCH (08:48)
[2021-05-20] MEDS: Carvedilol 6.25 MG TAB PO SCH ×2 (08:49→21:22)
[2021-05-20] MEDS: Gabapentin 300 MG CAP PO SCH ×3 (08:49→21:21)
[2021-05-20] MEDS: valACYclovir 500 MG TAB PO SCH ×3 (08:50→21:24)
[2021-05-20] MEDS: Pregabalin 50 MG CAP PO SCH ×2 (08:50→21:22)
[2021-05-20] MEDS: Fluticasone Propionate Nasal Spray 16 gm Bottle NASAL SCH (08:51)
[2021-05-20] MEDS: Losartan 25 MG TAB PO SCH (08:51)
[2021-05-20] MEDS: Amoxicillin/Potassium Clav 875 MG TAB PO SCH ×2 (08:51→21:21)
[2021-05-20] MEDS: ABIRATERONE ACETATE 250 MG TABLET PO SCH (08:51)
[2021-05-20] MEDS: Tamsulosin HCl 0.4 MG CAP PO SCH (21:22)
[2021-05-21] MEDS: HYDROcodone/Acetaminophen 10/325 mg Tablet PO PRN (03:12)
[2021-05-21] MEDS: hydrALAZINE 25 MG TAB PO PRN ×3 (03:12→18:07)
[2021-05-21] MEDS: Morphine 4 MG/ML VIAL SLOW IVP PRN ×4 (06:22→23:31)
[2021-05-21 08:59] LABS: #Basophils 0.1 thou/uL (0.0-0.2); #Eosinphils 0.3 thou/uL (0.0-0.7); #Lymphocytes 2.6 thou/uL (1.20-3.40); #Monocytes 0.6 thou/uL (0.11-0.59); #Neutrophils 4.1 thou/uL (1.40-6.50); %Basophils 0.7 % (0.0-1.0); %Eosinophils 3.5 % (0.0-10.0); %Lymphocytes 34.1 % (21.0-51.0); %Monocytes 7.5 % (0.0-10.0); %Neutrophils 54.2 % (42.0-75.0); Hemoglobin 10.5 g/dL (14.0-18.0); Mean Corpuscular HGB CONC 32.6 g/dL (32.0-36.0); Mean Corpuscular Hemoglobin 33.1 pg (27.0-31.0); Mean Platelet Volume 6.9 fL (7.4-10.4); Platelet Count 306 thou/uL (130-400); RBC Distribution Width 13.4 % (11.5-14.5); Red Blood Cell (RBC) Count 3.17 mill/uL (4.70-6.10); White Blood Cell (WBC) Count 7.6 thou/uL (4.8-10.8)
[2021-05-21 09:14] LABS: Anion Gap 10 mmol/L (10-20); BUN (Urea Nitrogen) 14 mg/dL (8.4-25.7); Calc. Creatinine Clearance 105 mL/min (70-130); Calcium 9.3 mg/dL (7.8-10.44); Carbon Dioxide 28 mmol/L (23-31); Chloride 99 mmol/L (98-107); Glucose 108 mg/dL (83-110); Potassium 4.3 mmol/L (3.5-5.1); Sodium 133 mmol/L (136-145)
[2021-05-21] MEDS: Gabapentin 300 MG CAP PO SCH ×3 (09:37→21:22)
[2021-05-21] MEDS: Polyethylene Glycol 3350 17 GM Packet PO SCH (09:37)
[2021-05-21] MEDS: valACYclovir 500 MG TAB PO SCH ×3 (09:37→21:22)
[2021-05-21] MEDS: Amoxicillin/Potassium Clav 875 MG TAB PO SCH ×2 (09:38→21:21)
[2021-05-21] MEDS: Carvedilol 6.25 MG TAB PO SCH ×2 (09:38→21:22)
[2021-05-21] MEDS: Pregabalin 50 MG CAP PO SCH ×2 (09:38→21:22)
[2021-05-21] MEDS: Losartan 25 MG TAB PO SCH (09:38)
[2021-05-21] MEDS: Fluticasone Propionate Nasal Spray 16 gm Bottle NASAL SCH (09:39)
[2021-05-21] MEDS: ABIRATERONE ACETATE 250 MG TABLET PO SCH (09:41)
[2021-05-21] MEDS ORDERED: Senokot 8.6 MG TAB PO PRN (15:24)
[2021-05-21] MEDS: Docusate 100 MG CAP PO SCH (21:21)
[2021-05-21] MEDS: Tamsulosin HCl 0.4 MG CAP PO SCH (21:21)
[2021-05-21] MEDS: Morphine ER 15 MG TAB PO SCH (21:23)
[2021-05-22] MEDS: Morphine 4 MG/ML VIAL SLOW IVP PRN (06:44)
[2021-05-22] MEDS: Fluticasone Propionate Nasal Spray 16 gm Bottle NASAL SCH (09:00)
[2021-05-22] MEDS: Amoxicillin/Potassium Clav 875 MG TAB PO SCH ×2 (09:03→22:45)
[2021-05-22] MEDS: Morphine ER 15 MG TAB PO SCH ×2 (09:03→23:50)
[2021-05-22] MEDS: Docusate 100 MG CAP PO SCH ×2 (09:04→22:46)
[2021-05-22] MEDS: Losartan 25 MG TAB PO SCH (09:04)
[2021-05-22] MEDS: Pregabalin 50 MG CAP PO SCH ×2 (09:05→22:45)
[2021-05-22] MEDS: Gabapentin 300 MG CAP PO SCH ×3 (09:05→22:47)
[2021-05-22] MEDS: Carvedilol 6.25 MG TAB PO SCH ×2 (09:05→22:47)
[2021-05-22] MEDS: Polyethylene Glycol 3350 17 GM Packet PO SCH (09:06)
[2021-05-22] MEDS: valACYclovir 500 MG TAB PO SCH ×2 (09:08→14:36)
[2021-05-22] MEDS: ABIRATERONE ACETATE 250 MG TABLET PO SCH (09:08)
[2021-05-22] MEDS: Tamsulosin HCl 0.4 MG CAP PO SCH (22:46)
[2021-05-23] MEDS: valACYclovir 500 MG TAB PO SCH ×3 (00:22→15:34)
[2021-05-23] MEDS: Docusate 100 MG CAP PO SCH (09:24)
[2021-05-23] MEDS: Amoxicillin/Potassium Clav 875 MG TAB PO SCH (09:24)
[2021-05-23] MEDS: Losartan 25 MG TAB PO SCH (09:25)
[2021-05-23] MEDS: Gabapentin 300 MG CAP PO SCH ×2 (09:26→15:34)
[2021-05-23] MEDS: Polyethylene Glycol 3350 17 GM Packet PO SCH (09:27)
[2021-05-23] MEDS: Carvedilol 6.25 MG TAB PO SCH (09:27)
[2021-05-23] MEDS: Pregabalin 50 MG CAP PO SCH (09:29)
[2021-05-23] MEDS: ABIRATERONE ACETATE 250 MG TABLET PO SCH (09:35)
[2021-05-23] MEDS: Fluticasone Propionate Nasal Spray 16 gm Bottle NASAL SCH (09:36)
[2021-05-23] MEDS: Morphine ER 15 MG TAB PO SCH (10:25)
[2021-05-23 15:47] VITALS: BP 104/60; TEMP 97.5
== END 2021-05-23 16:17 | disposition hospice, home (50) | DRG 542 ==
LOC: ERS 10:41 → 2SE 14:47 → 2NO 05-13 18:22 → T4-B 05-14 16:31
PROVIDERS: ADMIT Internal Medicine; ATTEND Internal Medicine
DX: C79.51 Secondary malignant neoplasm of bone (principal); J96.01 Acute respiratory failure with hypoxia; B02.8 Zoster with other complications; K57.20 Diverticulitis of large intestine with perforation and abscess without bleeding; N17.9 Acute kidney failure, unspecified; Z66 Do not resuscitate; Z20.822 Contact with and (suspected) exposure to COVID-19; M19.011 Primary osteoarthritis, right shoulder; I25.10 Atherosclerotic heart disease of native coronary artery without angina pectoris; K52.9 Noninfective gastroenteritis and colitis, unspecified; N40.0 Benign prostatic hyperplasia without lower urinary tract symptoms; C61 Malignant neoplasm of prostate; E78.5 Hyperlipidemia, unspecified; I12.9 Hypertensive chronic kidney disease with stage 1 through stage 4 chronic kidney disease, or unspecified chronic kidney disease; I48.91 Unspecified atrial fibrillation; K21.9 Gastro-esophageal reflux disease without esophagitis; N18.1 Chronic kidney disease, stage 1; E78.00 Pure hypercholesterolemia, unspecified; Z79.82 Long term (current) use of aspirin; Z79.51 Long term (current) use of inhaled steroids; Z79.899 Other long term (current) drug therapy; Z90.49 Acquired absence of other specified parts of digestive tract; Z88.5 Allergy status to narcotic agent; Z92.3 Personal history of irradiation; Z95.1 Presence of aortocoronary bypass graft; Z86.16 Personal history of COVID-19
CPT/HCPCS: 36415; 71045; 71250; 72156; 72157; 72158; 74177; 77014; 77280; 77290; 77307; 77334; 77412; 80048; 80053; 82607; 82746; 83690; 83735; 83880; 84484; 85014; 85018; 85025; 85049; 85610; 85730; 86850; 86900; 86901; 93005; 94640; 96365; 96375; A9579; J0690; J1940; J2270; J2405; J2543; J3490; J7620; Q0162; Q9967; U0002; U0005